=== PATIENT | male | born 1950 | race Caucasian/White ===

== ENCOUNTER 2025-04-20 16:54 | Emergency (ER) | payer OTHER, SELFPAY ==
[2025-04-20 17:01] VITALS: BP 98/73
[2025-04-20 17:22] LABS: Hematocrit 43.2 % (39.0-52.0); Hemoglobin 14.3 g/dL (13.0-18.0); Mean Corp Hgb Conc. 33.1 g/dL (33.0-37.0); Mean Corpuscular Volume 90.6 fL (80.0-94.0); Nucleated Red Blood Cells % 0 % (-); Platelet Count 141 10^3/uL (130-400); Red Cell Dist. Width 12.0 % (11.5-14.5)
[2025-04-20 17:36] LABS: ALT (SGPT) 21 U/L (0-50); AST (SGOT) 20 U/L (17-59); Albumin 4.4 g/dl (3.5-5.0); Alkaline Phosphatase 68 U/L (38-126); Blood Urea Nitrogen 22 mg/dl (9-20); Calcium 9.6 mg/dl (8.4-10.2); Carbon Dioxide 24 mmol/L (22-30); Chloride 103 mmol/L (98-107); Glucose 155 mg/dl (70-99); Lipase 80 U/L (23-300); Potassium 4.1 mmol/L (3.5-5.1); Sodium 136 mmol/L (135-145); Total Protein 6.7 g/dl (6.3-8.2); eGFR 56.58
--- NOTE | 2025-04-20 18:23 | ED.GENMED ---
History of Present Illness
<FLACO Holt - Last Filed: 04/20/25 23:00>
General
Chief Complaint: Abdominal Symptoms
Source: patient and spouse
Exam Limitations: none
Time Seen by Provider: 04/20/25 18:06
Nursing documentation reviewed up to this point in time: agreed with
History of Present Illness
History of Present Illness:
Patient is a 75-year-old male presents to the ER for abdominal pain/ Diarrhea. He initially started with diarrhea in January and had diarrhea until March 28. He was seen by his family doctor and had negative stool studies at this time. He
also had an ultrasound of his abdomen which showed cholelithiasis but no cholecystitis. He saw his GI doctor March 08 and is scheduled for an MRI of his abdomen at [place] May 21 and the colonoscopy/endoscopy May 27. He presents to
the ER today however because though his initial diarrhea stopped March 28 it restarted Monday several nights ago. He is nauseous. He did vomit today. He has lost a lot of weight since the diarrhea started January. He was 175 pounds and now he
reports he is down to 158 pounds. He has no appetite.
Past History
<FLACO Holt - Last Filed: 04/20/25 23:00>
Past History
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
ED Past Surgical History: None
Social History
Personal:
Living: with family
Employment: Employed
Phy Exam
<FLACO Holt - Last Filed: 04/20/25 23:00>
General Physical Exam
General Presentation: no apparent distress
General age: appears stated age
General Skin: warm and dry
General Habitus: elderly
General Mental: alert
General Hydration: dry mucous membranes
Cardiovascular Exam
Cardiovascular Exam: regular rate/rhythm, no murmur and normal peripheral pulses
Pulmonary Exam
Pulmonary Exam: lungs clear and no respiratory distress
Gastrointestinal Exam
Gastrointestinal Exam: non tender, soft and other (mild abd distention )
Neurological Exam
Neurological Exam: alert and oriented x3
Musculoskeletal Exam
Musculoskeletal Exam: full ROM
Skin Exam
Skin Exam: normal color and warm/dry
Psychiatric Exam
Psychiatric Exam: normal mood/affect
Course
<FLACO Holt - Last Filed: 04/20/25 23:00>
Orders/Labs/Results
Orders:
Orders
04/20/25 17:09
Complete Blood Count/With Diff Urgent
Comprehensive Metabolic Panel Urgent
Lipase Urgent
04/20/25 19:03
CT Abd/pel W Iv And Oral Contr Urgent
Comment:
Reason For Exam: nss
0.9% Sodium Chloride 1000 ml [Nss] 1,000 ml IV BOLUS
Iohexol [Omnipaque] See Protocol PO NOW STA
04/20/25 19:25
Ondansetron Injectable [Zofran] 4 mg IV NOW STA
Abnormal Lab Results
04/20/25
17:09
WBC 13.9 H 10^3/uL
(4.8-10.8)
Abs Immat Gran (auto) 0.1 H 10^3/uL
(0-0.05)
Absolute Neuts (auto) 10.8 H 10^3/uL
(1.4-6.5)
Absolute Monos (auto) 0.9 H 10^3/uL
(0.1-0.6)
Neutrophils % 77.3 H %
(42.2-75.2)
Lymphocytes % 14.8 L %
(20.5-51.1)
BUN 22 H mg/dl
(9-20)
Glucose 155 H mg/dl
(70-99)
04/20/25 17:09
04/20/25 17:09
Vital Signs
Initial and Last Documented VS:
Initial Vital Signs
Temp Pulse Resp BP Pulse Ox
98.6 F 113 18 98/73 98
04/20/25 17:01 04/20/25 17:01 04/20/25 17:01 04/20/25 17:01 04/20/25 17:01
Last Documented Vital Signs
Temp Pulse Resp BP Pulse Ox
98.6 F 113 18 116/74 97
04/20/25 17:01 04/20/25 17:01 04/20/25 17:01 04/20/25 21:00 04/20/25 21:01
<Riley Martins, DO - Last Filed: 04/20/25 22:49>
Orders/Labs/Results
Orders:
Orders
04/20/25 17:09
Complete Blood Count/With Diff Urgent
Comprehensive Metabolic Panel Urgent
Lipase Urgent
04/20/25 19:03
CT Abd/pel W Iv And Oral Contr Urgent
Comment:
Reason For Exam: nss
0.9% Sodium Chloride 1000 ml [Nss] 1,000 ml IV BOLUS
Iohexol [Omnipaque] See Protocol PO NOW STA
04/20/25 19:25
Ondansetron Injectable [Zofran] 4 mg IV NOW STA
Abnormal Lab Results
04/20/25
17:09
WBC 13.9 H 10^3/uL
(4.8-10.8)
Abs Immat Gran (auto) 0.1 H 10^3/uL
(0-0.05)
Absolute Neuts (auto) 10.8 H 10^3/uL
(1.4-6.5)
Absolute Monos (auto) 0.9 H 10^3/uL
(0.1-0.6)
Neutrophils % 77.3 H %
(42.2-75.2)
Lymphocytes % 14.8 L %
(20.5-51.1)
BUN 22 H mg/dl
(9-20)
Glucose 155 H mg/dl
(70-99)
04/20/25 17:09
04/20/25 17:09
Vital Signs
Initial and Last Documented VS:
Initial Vital Signs
Temp Pulse Resp BP Pulse Ox
98.6 F 113 18 98/73 98
04/20/25 17:01 04/20/25 17:01 04/20/25 17:01 04/20/25 17:01 04/20/25 17:01
Last Documented Vital Signs
Temp Pulse Resp BP Pulse Ox
98.6 F 113 18 116/74 97
04/20/25 17:01 04/20/25 17:01 04/20/25 17:01 04/20/25 21:00 04/20/25 21:01
<FLACO Holt - Last Filed: 04/20/25 23:00>
MDM/Problems Addressed
Differential Diagnosis Includes:
Not limited to colitis bowel obstruction dehydration
MDM/Problems Addressed:
As documented patient is a 75-year-old male who has had recent issues with diarrhea which did resolve however then restarted several nights ago. Today patient is nauseous and did vomit. He is scheduled for endoscopy colonoscopy but that is not
scheduled until May. With the start diarrhea patient has lost weight and has had decreased appetite. White count is elevated at 13.9 patient denies any fevers afebrile BUN very minimally elevated at 22. Patient was given fluids CAT scan
ordered
CAT scan reviewed with the position CAT scan does show severe distention of the colon most consistent with severe colonic adynamic ileus. There is mild splenomegaly with innumerable small low-attenuation lesions in the spleen ; very severe
enlargement the prostate gland.
This CAT scan will need outpatient follow-up. Patient was eval by ED physician patient is feeling well enough to go home. He has appointment with his family doctor on and he is being followed by his GI doctor. will d/c w/ zofran with close
outpt f/u by his pcp.
<FLACO Holt - Last Filed: 04/20/25 23:00>
*Pulse Oximetry
SaO2: 98
Oxygen Mode of Delivery: Room air
Patient hypoxic: no
*Critical Care Note
Total Time (30-74mins, 75-104mins- exclusive of procedures): Not Applicable
ED Attending Note
<FLACO Holt - Last Filed: 04/20/25 23:00>
-
Portions of this chart may have been created with voice recognition software.� Occasional wrong word or��sound alike� substitutions may have occurred due to the inherent limitations of voice recognition software.
<Riley Martins DO - Last Filed: 04/20/25 22:49>
ED Attending Note
Patient seen and examined by attending physician: Yes
I performed the substantive portion of visit, reviewed & personally made and approve the management plan that is documented in note by myself or RONDA.: Yes
ED Attending Note:
I have seen and evaluated the patient with a [id number] encounter. I have spoken to the advance practicer provider and involved in the medical history, the physical exam, medical decision making.
Evaluation and management service: agree unless noted differently below.
Results interpretation: agree unless noted differently below.
Focused HPI: 75-year-old male presenting for evaluation of intermittent abdominal pain. Patient states he gets an episode like this every year but this is lasting longer. It is associated with a lot of gas production and diarrhea
Physical exam: Sitting in bed comfortably. Soft and nontender
Medical Decision Making: CT shows concern for an ileus. We did offer admission but patient states he feels comfortable going home. He has GI follow-up. We discussed the importance of colonoscopy and endoscopy and likely obtaining tissue samples.
He has PCP appointment in 2 days. He feels better after take Zofran.
Discharge Plan
Departure
Patient Disposition: Home (Routine Discharge)
Date of Disposition: 04/20/25
Time of Disposition: 22:49
Patient with high blood pressure during this ER visit?: No
Condition: Fair
Covid-19: Not Applicable
Discharge Problem:
Adynamic ileus
Instructions: Diarrhea in teens and adults
Prescriptions:
New
ondansetron 4 mg tablet,disintegrating
4 mg PO Q8H PRN (Reason: nausea and vomiting) Qty: 10 0RF
No Action
lisinopril-hydrochlorothiazide 1 EACH tablet
1 tab PO DAILY
simvastatin 10 MG tablet
10 mg PO HS
amlodipine 5 MG tablet
5 mg PO DAILY
potassium chloride [Klor-Con] 20 MEQ packet
20 meq PO BID
esomeprazole magnesium [Nexium] 40 MG capsule,delayed release(DR/EC)
40 mg PO HS
Referrals:
Jono Manuel MD [Family Provider, Internal Medicine]
Activity Restrictions/Additional Instructions:
As discussed your CAT scan did show an adynamic ileus along with other additional findings. Please follow-up with your family doctor and your GI specialist for reevaluation of these findings return if any worsening of symptoms. You may take
nausea medicine as needed
Interventions
Interventions:
*Risk Screen - Suicide Last Done: 04/20/25 17:01
*General Assessment Last Done: 04/20/25 17:01
*ED- Fall Risk Assessment Last Done: 04/20/25 17:01
*ED COVID-19 Vaccine History Last Done: 04/20/25 17:01
*ED Influenza Vaccine History Last Done: 04/20/25 17:01
ZJ-Newmjs-Siqzptxkuw Assessment Last Done: 04/20/25 19:01
Discharge Date and Time
Print Language: UPPER SORBIAN
[2025-04-20 19:00] VITALS: BMI 21.8
[2025-04-20 19:02] VITALS: BP 93/57
[2025-04-20] MEDS: OMNIPAQUE 50 ML PO (19:09)
[2025-04-20] MEDS: NSS 1000 IV (19:10)
[2025-04-20] MEDS: ZOFRAN 4 MG IV (19:27)
[2025-04-20 20:00] VITALS: BP 111/71
[2025-04-20 21:00] VITALS: BP 116/74
[2025-04-20 23:05] VITALS: BP 107/68
== END 2025-04-20 23:05 | disposition home or self-care (01) ==
LOC: EMR 16:54
PROVIDERS: EMERGENCY PHYSICIAN Student in an Organized Health Care Education/Training Program; FAMILY PHYSICIAN Internal Medicine
DX: K56.0 Paralytic ileus (principal); R16.1 Splenomegaly, not elsewhere classified; N40.0 Benign prostatic hyperplasia without lower urinary tract symptoms
CPT/HCPCS: 96374; 96361; 99284; 74177; 80053; 83690; 85025; Q9967

== ENCOUNTER 2025-04-22 22:00 | Inpatient (IN) | payer OTHER, SELFPAY ==
[2025-04-22 15:39] VITALS: BP 89/65
[2025-04-22 16:02] LABS: Hematocrit 39.6 % (39.0-52.0); Hemoglobin 13.7 g/dL (13.0-18.0); Mean Corp Hgb Conc. 34.6 g/dL (33.0-37.0); Mean Corpuscular Volume 87.4 fL (80.0-94.0); Nucleated Red Blood Cells % 0 % (-); Platelet Count 148 10^3/uL (130-400); Red Cell Dist. Width 12.2 % (11.5-14.5)
[2025-04-22 16:12] LABS: ALT (SGPT) 20 U/L (0-50); AST (SGOT) 22 U/L (17-59); Albumin 4.3 g/dl (3.5-5.0); Alkaline Phosphatase 58 U/L (38-126); Blood Urea Nitrogen 23 mg/dl (9-20); Calcium 9.9 mg/dl (8.4-10.2); Carbon Dioxide 23 mmol/L (22-30); Chloride 104 mmol/L (98-107); Glucose 126 mg/dl (70-99); Lipase 134 U/L (23-300); Potassium 3.3 mmol/L (3.5-5.1); Sodium 134 mmol/L (135-145); Total Protein 6.8 g/dl (6.3-8.2); eGFR 56.58
--- NOTE | 2025-04-22 16:47 | ED.GENMED ---
History of Present Illness
<Sydnee Carrasco BOTTOM LOADER - Last Filed: 04/22/25 20:30>
General
Chief Complaint: Abdominal Pain
Source: patient
Exam Limitations: none
Time Seen by Provider: 04/22/25 16:47
Nursing documentation reviewed up to this point in time: agreed with
History of Present Illness
History of Present Illness:
75-year-old male with history of HTN, HLD, GERD, BPH presents for abdominal pain. He was seen here 2 days ago for abdominal pain, diarrhea since January to March 28 with negative stool studies by PCP then returned again 2 days ago prompting his ER
visit that day. During previous workup, abdomen ultrasound showed cholelithiasis but no cholecystitis. GI doctor 03/08 scheduled for MRI of his abdomen at [place] on 05/21 colonoscopy/endoscopy on 05/27. He reported a weight loss from 175 pounds to
188 pounds in [address] on 04/20 showed distention of the colon most consistent with severe colonic adynamic ileus and patient was having a prescheduled follow-up appointment with his PCP today
He is here today
Past History
<Sydnee Carrasco, BOTTOM LOADER - Last Filed: 04/22/25 20:30>
Past History
ED Past Medical History: GERD, HTN, Hypercholesterolemia, Other (Severe BPH) and Other
ED Past Surgical History: None
Social History
Personal:
Living: with family
Employment: Employed
Review of Systems
<Sydnee Carrasco, BOTTOM LOADER - Last Filed: 04/22/25 20:30>
Review of Systems
Allergies reviewed?: Yes
All Other Systems: ROS reviewed and negative except as documented in HPI and ROS
Phy Exam
<Sydnee Carrasco, BOTTOM LOADER - Last Filed: 04/22/25 20:30>
Physical Exam
Physical Exam:
GENERAL: No acute distress. A&Ox3.
CONSTITUTIONAL: Afebrile.
EYES: clear, conjunctivae normal
ENMT: moist mucus membranes, Pharynx nl
RESPIRATORY: Regular respirations, nonlabored, lungs clear.
CARDIOVASCULAR: Regular rate and rhythm, no murmurs, no rubs.
GI: Soft, nontender, normal BS
MUSCULOSKELETAL: Moves with ease. Well perfused.
SKIN: Warm, dry, pink
PSYCH: Normal mood and affect. Well kept, interactive and appropriate
NEUROLOGIC: Awake, alert and oriented. No focal neurological deficits
Course
<Sydnee Carrasco, BOTTOM LOADER - Last Filed: 04/22/25 20:30>
Orders/Labs/Results
Orders:
Orders
04/22/25 15:46
Complete Blood Count/With Diff Urgent
Comprehensive Metabolic Panel Urgent
Lipase Urgent
04/22/25 17:09
0.9% Sodium Chloride 1000 ml [Nss] 1,000 ml IV BOLUS
Potassium Chloride [KCl] 40 meq PO NOW STA
04/22/25 17:13
Obstruct Series W/PA Chest [CR Obstruct Series W/pa Chest] Urgent
Comment:
Reason For Exam: recent dx adynamic ileus, cking amt of dilatation
Abnormal Lab Results
04/22/25
15:46
WBC 11.3 H 10^3/uL
(4.8-10.8)
RBC 4.53 L 10^6/uL
(4.70-6.10)
Absolute Neuts (auto) 8.1 H 10^3/uL
(1.4-6.5)
Absolute Monos (auto) 0.9 H 10^3/uL
(0.1-0.6)
Lymphocytes % 18.3 L %
(20.5-51.1)
Sodium 134 L mmol/L
(135-145)
Potassium 3.3 L mmol/L
(3.5-5.1)
BUN 23 H mg/dl
(9-20)
Glucose 126 H mg/dl
(70-99)
04/22/25 15:46
04/22/25 15:46
Vital Signs
Initial and Last Documented VS:
Initial Vital Signs
Temp Pulse Resp BP Pulse Ox
98.2 F 96 18 89/65 96
04/22/25 15:39 04/22/25 15:39 04/22/25 15:39 04/22/25 15:39 04/22/25 15:39
Last Documented Vital Signs
Temp Pulse Resp BP Pulse Ox
97.7 F 65 16 114/73 99
04/22/25 18:27 04/22/25 18:27 04/22/25 18:27 04/22/25 18:27 04/22/25 18:27
Bench Boring Machine Operator consulted with Physician
Bench Boring Machine Operator consulted with physician?: Yes
Name of Physician Consulted: Maritza
<Sridhar Salas, DO - Last Filed: 04/22/25 20:06>
Orders/Labs/Results
Orders:
Orders
04/22/25 15:46
Complete Blood Count/With Diff Urgent
Comprehensive Metabolic Panel Urgent
Lipase Urgent
04/22/25 17:09
0.9% Sodium Chloride 1000 ml [Nss] 1,000 ml IV BOLUS
Potassium Chloride [KCl] 40 meq PO NOW STA
04/22/25 17:13
Obstruct Series W/PA Chest [CR Obstruct Series W/pa Chest] Urgent
Comment:
Reason For Exam: recent dx adynamic ileus, cking amt of dilatation
Abnormal Lab Results
04/22/25
15:46
WBC 11.3 H 10^3/uL
(4.8-10.8)
RBC 4.53 L 10^6/uL
(4.70-6.10)
Absolute Neuts (auto) 8.1 H 10^3/uL
(1.4-6.5)
Absolute Monos (auto) 0.9 H 10^3/uL
(0.1-0.6)
Lymphocytes % 18.3 L %
(20.5-51.1)
Sodium 134 L mmol/L
(135-145)
Potassium 3.3 L mmol/L
(3.5-5.1)
BUN 23 H mg/dl
(9-20)
Glucose 126 H mg/dl
(70-99)
04/22/25 15:46
04/22/25 15:46
Vital Signs
Initial and Last Documented VS:
Initial Vital Signs
Temp Pulse Resp BP Pulse Ox
98.2 F 96 18 89/65 96
04/22/25 15:39 04/22/25 15:39 04/22/25 15:39 04/22/25 15:39 04/22/25 15:39
Last Documented Vital Signs
Temp Pulse Resp BP Pulse Ox
97.7 F 65 16 114/73 99
04/22/25 18:27 04/22/25 18:27 04/22/25 18:27 04/22/25 18:27 04/22/25 18:27
<Sydnee Carrasco BOTTOM LOADER - Last Filed: 04/22/25 20:30>
MDM/Problems Addressed
Differential Diagnosis Includes:
bowel ileus, obstruction, perforation
MDM/Problems Addressed:
You [id number] male with history of HTN, HLD, GERD, BPH presents for abdominal pain. He was seen here 2 days ago for abdominal pain, diarrhea since January to March 28 with negative stool studies by PCP then returned again 2 days ago prompting
his ER visit that day. During previous workup, abdomen ultrasound showed cholelithiasis but no cholecystitis. GI doctor 03/08 scheduled for MRI of his abdomen at [place] on 05/21 colonoscopy/endoscopy on 05/27. He reported a weight loss from 175
pounds to 188 pounds in [address] on 04/20 showed distention of the colon most consistent with severe colonic adynamic ileus and patient was having a prescheduled follow-up appointment with his PCP today
He is here today
CBC: WBC 11.3 down from 2 days ago at 13.9.
CMP: No clinically significant abnormality
Spoke with patient's PCP Dr. Manuel Who states he spoke with patient's GI doctor Dr. Pabon and they want an obstruction series to compare the amount of bowel dilatation today without of the CAT scan that was taken 2 days ago. Requesting admission
and evaluation by our GI doctor.
8:00 p.m.
Obstruction series radiology report read: 1. SEVERE COLONIC ADYNAMIC ILEUS with severe diffuse air distention of the colon which appears similar to 04/20/2025.
2. No radiographic evidence for small bowel obstruction or pneumoperitoneum.
Hospitalist notified of admission
Pt remains comfortable.
<Sydnee Carrasco, BOTTOM LOADER - Last Filed: 04/22/25 20:30>
*Pulse Oximetry
SaO2: 96
Patient hypoxic: no
*Critical Care Note
Total Time (30-74mins, 75-104mins- exclusive of procedures): Not Applicable
ED Attending Note
<Sydnee Carrasco BOTTOM LOADER - Last Filed: 04/22/25 20:30>
-
Portions of this chart may have been created with voice recognition software.� Occasional wrong word or��sound alike� substitutions may have occurred due to the inherent limitations of voice recognition software.
<Sridhar Salas DO - Last Filed: 04/22/25 20:06>
ED Attending Note
Patient seen and examined by attending physician: Yes
ED Attending Note:
I have reviewed and agree with history treatment plan by Roberta carrasco DNP. My exam revealed
Physical Exam
General: no apparent distress, not acutely ill
Neck: supple. no meningeal signs. normal posterior pharynx
Heart: s1/s2 regular rate and rhythm, no murmur. equal radial
pulses.
HEENT: Pupils equal round reactive to light, EOMI
Lungs: no acute respiratory distress. clear bilaterally
Abdomen: normal bowel sounds. Diffuse tenderness. no CVAT
Neuro: alert and oriented. no focal neurological deficits cranial nerves II through XII intact
Skin: no rash
Psychiatric: well kept. interactive and cooperative
Extremities: no edema. no calf tenderness. negative homans. good distal pulses
75-year-old male with severe adynamic ileus, continued pain and diarrhea. Admit for further evaluation.
Discharge Plan
Departure
Patient Disposition: Admit
Date of Disposition: 04/22/25
Time of Disposition: 20:08
Admit to: Med/Surg
Presentation/result/management discussed w/ accepting MD/DO: Hospitalist
Condition: Fair
Discharge Problem:
Adynamic ileus
Prescriptions:
No Action
lisinopril-hydrochlorothiazide 1 EACH tablet
1 tab PO DAILY
simvastatin 10 MG tablet
10 mg PO HS
amlodipine 5 MG tablet
5 mg PO DAILY
potassium chloride [Klor-Con] 20 MEQ packet
20 meq PO BID
esomeprazole magnesium [Nexium] 40 MG capsule,delayed release(DR/EC)
40 mg PO HS
ondansetron 4 mg tablet,disintegrating
4 mg PO Q8H PRN (Reason: nausea and vomiting) Qty: 10 0RF
Referrals:
Jono Manuel MD [Family Provider, Internal Medicine]
Interventions
Interventions:
*Risk Screen - Suicide Last Done: 04/22/25 15:39
*General Assessment Last Done: 04/22/25 15:39
*Neglect/Abuse Screening Last Done: 04/22/25 15:39
*ED- Fall Risk Assessment Last Done: 04/22/25 16:54
*ED COVID-19 Vaccine History Last Done: 04/22/25 15:39
*ED Influenza Vaccine History Last Done: 04/22/25 15:39
CM-Qxkvno-Jlshbruztv Assessment Last Done: 04/22/25 16:57
Discharge Date and Time
Print Language: CENTRAL AFRICAN
[2025-04-22 16:59] VITALS: BP 107/70
[2025-04-22 17:00] VITALS: BMI 22.7
[2025-04-22] MEDS: KCL 40 MEQ PO (17:20)
[2025-04-22] MEDS: NSS 1000 IV (17:28)
[2025-04-22 18:27] VITALS: BP 114/73
[2025-04-22 20:00] VITALS: BP 98/81
--- NOTE | 2025-04-22 20:41 | HPS.HSE ---
Addendum entered and electronically signed by Cesar Villa DO 04/22/25 22:21:
Patient seen and examined independently. Agree with findings and plan as set forth by FLACO Carlton.
Patient is a 75y M with PMH significant for hypertension, BPH and GERD who presents to ED complaining of abdominal distention, diarrhea and weight loss since January. Patient reports prior h/o similar symptoms- always occurring in the fall and
usually lasting about 7-10 days. This year he developed similar symptoms and they have persisted. He reports about 10 episodes of watery, non-bloody diarrhea and large amounts of flatus per day. he feels improved for about an hour after each
episode. Mild crampy abdominal pain. No N/V. No fevers / chills.
He has andres evaluated by his PCP and GI (Dr Pabon) and is scheduled for colonoscopy in May.
Recent abdominal imaging was done which showed marked colonic distention / 'ileus' and patient was advised to present to the ED.
Ass:
Diarrhea
Colonic Distention
Mild Hyponatremia
Mild Hypokalemia
Benign Hypertension
GERD
BPH
Plan:
Admit for further evaluation and treatment.
NPO for now.
IVF support and follow for improvement in lytes.
Hold diuretics / antihypertensive meds acutely.
Check stool studies.
GI evaluation for additional recommendations.
Original Note:
Family Physician
-
Family Physician: Jono Manuel
Chief Complaint
-
abnormal out patient abdominal CT
History of Present Illness
Patient is a 75-year-old male with past medical history significant for hypertension, hyperlipidemia, GERD and BPH who presented to [facility] ED for evaluation of abnormal out patient abdominal CT. Patient states he has been dealing with watery diarrhea
multiple times a day with associated decreased appetite and nausea since mid January. Symptoms have resulted in an 18 pound weight loss per patient. He has been following with his primary provider, Dr. Manuel and GI specialist Dr. Pabon @ [facility] in [place]. He has had stool studies completed that were unremarkable and is scheduled for endoscopy colonoscopy May 27, 2025. On April 20, 2025 patient had out patient abdominal CT done that showed severe, air distention of
the colon most consistent with a severe colonic adynamic ileus. Patient states that both primary and GI called instructing him to proceed to ED for evaluation and treatment. Patient denies any fever, chills, cough, shortness of breath, palpitations,
vomiting or urinary symptoms.
Medical History
Past Medical History
Past Medical History: Reports Other
Additional Past Medical History:
hypertension
hyperlipidemia
GERD
BPH
erectile dysfunction
Past Surgical History: Reports Other
Additional Past Surgical History:
tonsillectomy
Social History
Tobacco: Non-smoker
Alcohol: None
Drug: None
Personal:
Living: With Family
Employment: Employed (continuing to work PT )
Family History
Family History: Not pertinent
Allergies / Home Medications
Allergies reflects when Allergies were last updated in [facility].
Home Medications with original date entered in [facility]
Allergy/Medication List:
Allergies
Allergy/AdvReac Type Severity Reaction Status Date / Time
Penicillins Allergy Unknown Verified 04/20/25 17:05
Sulfa (Sulfonamide Allergy Unknown Verified 04/20/25 17:05
Antibiotics)
Tetanus Vaccines and Toxoid Allergy Unknown Verified 04/20/25 17:05
(Tetanus Vaccines & Toxoid)
Home Medications
esomeprazole magnesium 40 mg capsule,delayed release (Nexium) 40 mg PO HS 03/20/14
potassium chloride 20 mEq oral packet (Klor-Con) 20 meq PO DAILY 03/20/14
ondansetron 4 mg disintegrating tablet 4 mg PO Q8H PRN nausea and vomiting #10 tabs 04/20/25
Bifidobacterium longum 10 million cell capsule (Align (B.longum)) 1 cell PO DAILY 04/22/25
atorvastatin 40 mg tablet 40 mg PO HS 04/22/25
sqogjotonz-zkzpwmbgycugm-xqhwgaow 50 mg-325 mg-40 mg tablet 1 tab PO Q4H PRN migraine 04/22/25
diazepam 5 mg tablet 5 mg PO HSPRN PRN insomnia 04/22/25
finasteride 5 mg tablet 5 mg PO HS 04/22/25
flunisolide 25 mcg (0.025 %) nasal spray 1 spray intranasal DAILY 04/22/25
lisinopril 10 mg tablet 10 mg PO DAILY 04/22/25
simethicone 125 mg tablet 125 mg PO QIDPRN PRN gas pains 04/22/25
spironolactone 25 mg tablet 25 mg PO SUTUTHSA 04/22/25
spironolactone 50 mg tablet 50 mg PO MOWEFR 04/22/25
tamsulosin 0.4 mg capsule 0.4 mg PO HS 04/22/25
zolpidem 10 mg tablet 10 mg PO HSPRN PRN insomnia 04/22/25
Review of Systems
-
History Source: Patient
Constitutional: Denies Fever or Chills
EENT: Denies Sore Throat
Respiratory: Denies Cough, Hemoptysis or Trouble Breathing
Cardiac: Denies Chest Pain, Diaphoresis, Palpitations or Syncope
Abdomen/GI: Reports Abdominal Pain, Nausea, Diarrhea, Anorexia (poor appetite ) and Other (18 weight loss since mid ); Denies Vomiting, Constipated, Bloody Stools or Black Stools
: Denies Dysuria, Frequency or Urgency
Musculoskeletal: Denies Joint Pain
Skin: Denies Rash
Neurological: Denies Dizzy, Headache, Weakness or Numbness
Endocrine: Denies Polyuria or Polydipsia
Physical Exam
Vital Signs
Vital Signs
Temp Pulse Resp BP Pulse Ox
97.7 F 65 16 114/73 99
04/22/25 18:27 04/22/25 18:27 04/22/25 18:27 04/22/25 18:27 04/22/25 18:27
Physical Exam
General: Well Developed, Well Nourished, No Apparent Distress, Comfortable and Conversant
HEENT: NormoCephalic, Moist mucous membranes, PERRLA, Nose Appears Normal and Ears Appear Normal
Respiratory: Clear and Non Labored Respirations; No Wheezes, Rales or Rhonchi
Cardiac: S1/S2 and Regular Rhythm; No Murmur
GI: Soft, Non Distended, Normal Bowel Sounds and Tender (mildly tender )
Musculoskeletal: No Clubbing, No Cyanosis and No Edema
Skin: Warm and IV/Catheter Site
Neuro: Awake and AO x 3
Psych: Calm and Intact Judgment/Insight
Laboratory Results
-
04/22/25 15:46
04/22/25 15:46
Laboratory Results
Total Bilirubin 0.8 mg/dl (0.2-1.3) 04/22/25 15:46
AST 22 U/L (17-59) 04/22/25 15:46
ALT 20 U/L (0-50) 04/22/25 15:46
Alkaline Phosphatase 58 U/L (38-126) 04/22/25 15:46
Lipase 134 U/L (23-300) 04/22/25 15:46
Data Reviewed
-
Diagnostic Radiology: Report Reviewed by me (Chest/Abd: 1. SEVERE COLONIC ADYNAMIC ILEUS with severe diffuse air distention of the colon which appears similar to 04/20/2025. 2. No radiographic evidence for small bowel obstruction or
pneumoperitoneum.)
Lab Data: Labs Reviewed by me (WBC 11.3, Na 134, K 3.3, BUN 23, Creat 1.3, eGFR 56.58)
Impression/Plan
-
IMPRESSION/PLAN:
#intractable diarrhea and nausea likely 2/2 severe colonic adynamic ileus
WBC 11.3, Na 134, K 3.3, BUN 23, Creat 1.3, eGFR 56.58
Chest/Abd X-ray: 1. SEVERE COLONIC ADYNAMIC ILEUS with severe diffuse air distention of the colon which appears similar to 04/20/2025.
2. No radiographic evidence for small bowel obstruction or pneumoperitoneum.
- Admit to med/surg
- Consult GI
- NPO
- IVF NSS 80cc/hr
- stool studies
#hypertension
- hold lisinopril and spironolactone
#hyperlipidemia
- continue atorvastatin
#GERD
- continue Nexium
#BPH
- continue finasteride and tamsulosin
Code status: full code
DVT prophylaxis: lovenox sq
--- NOTE | 2025-04-22 22:30 | PTCARENOTE ---
Pt received from ED via stretcher. Pt ambulated from stretcher to bed with standby assist. Admission questions and initial assessment completed. Pt oriented to room and call junior within reach.
[2025-04-22 22:31] VITALS: BP 106/73
[2025-04-22 22:43] VITALS: BP 114/73; BMI 22.7
[2025-04-22 22:53] VITALS: BMI 22.7
[2025-04-22] MEDS: LIPITOR 40 MG PO (23:40)
[2025-04-22] MEDS: PROTONIX 40 MG PO (23:41)
[2025-04-22] MEDS: AMBIEN 5 MG PO (23:41)
[2025-04-22] MEDS: LR 1000 IV (23:49)
[2025-04-23] MEDS: PROSCAR PO (00:02)
[2025-04-23] MEDS: FLOMAX PO (00:06)
[2025-04-23 07:05] VITALS: BP 103/71
[2025-04-23 07:09] LABS: Hematocrit 35.9 % (39.0-52.0); Hemoglobin 12.5 g/dL (13.0-18.0); Mean Corp Hgb Conc. 34.8 g/dL (33.0-37.0); Mean Corpuscular Volume 87.1 fL (80.0-94.0); Platelet Count 120 10^3/uL (130-400); Red Cell Dist. Width 12.2 % (11.5-14.5)
[2025-04-23 07:30] LABS: Blood Urea Nitrogen 22 mg/dl (9-20); Calcium 9.0 mg/dl (8.4-10.2); Carbon Dioxide 22 mmol/L (22-30); Chloride 110 mmol/L (98-107); Estimated Creatinine Clearance 63 ml/min; Glucose 87 mg/dl (70-99); Potassium 3.2 mmol/L (3.5-5.1); Sodium 139 mmol/L (135-145); eGFR > 60.00
--- NOTE | 2025-04-23 07:45 | W.PN.HOSP.TC ---
Today's Communication/Plan
-
Follow GI recommendations
Assessment / Plan
Assessment / Plan
Impression:
Patient is a 75y M with PMH significant for hypertension, BPH and GERD who presents to ED complaining of abdominal distention, diarrhea and weight loss since January. Patient reports prior h/o similar symptoms- always occurring in the fall and
usually lasting about 7-10 days. This year he developed similar symptoms and they have persisted. He reports about 10 episodes of watery, non-bloody diarrhea and large amounts of flatus per day. he feels improved for about an hour after each
episode. Mild crampy abdominal pain. No N/V. No fevers / chills.
He has andres evaluated by his PCP and GI (Dr Pabon) and is scheduled for colonoscopy in May.
X-ray shows severe colonic dynamic ileus with diffuse air distention of the colon, similar to CT scan from 04/20
Recent abdominal imaging was done which showed marked colonic distention / 'ileus' and patient was advised to present to the ED
C. difficile negative
Assessment/plan:
Intractable Diarrhea and Nausea
Likely due to: Severe colonic adynamic ileus/high-fiber diet
initial Labs shows DEVANG and WBC: 11.3 which improved to 8.0.
CT abdomen/pelvis done on 04/20/2025.
1. SEVERE AIR DISTENTION of the COLON most consistent with a SEVERE COLONIC ADYNAMIC ILEUS.
2. Mild splenomegaly with innumerable small subcentimeter low-attenuation lesions in the spleen. Diagnostic possibilities are (1) benign splenic lesions (granulomas, hemangiomas, or other benign splenic tumors) or (2) less likely malignancy
(lymphoma).
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
4. Mild intrahepatic biliary dilatation.
5. Cholelithiasis.
6. VERY SEVERE ENLARGEMENT of the PROSTATE GLAND.
7. 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
Imaging (Chest/Abd X-ray) on 04/22/2025.
Severe colonic adynamic ileus with diffuse air distention of the colon, similar to prior imaging (04/20/2025)
No radiographic evidence of small bowel obstruction or pneumoperitoneum
Plan:
Admitted to Med/Surg
GI consulted
NPO for now but may start clear liquid
IV fluids: Normal Saline at 80cc/hr
Stool studies: Negative C. difficile, pending other infectious stool studies.
Acute kidney injury.
Secondary to prerenal azotemia.
Creatinine: 1.3 improved to 1.0
Continue IV fluid
Hypokalemia.
initial K: 3.3 still low at 3.2
Replace and continue to monitor
Hyponatremia.
Resolved
Na: 134 improved to 139
Hypertension
Hold lisinopril and spironolactone
Hyperlipidemia
Continue atorvastatin
GERD
Continue esomeprazole (Nexium)
BPH
Continue finasteride and tamsulosin.
CODE STATUS: Full code
DVT prophylaxis: SCDs
Diet: NPO
Family communication: Discussed with at bedside
Disposition: GI consult
Total time spent on today's encounter was 55 minutes which included time spent in counseling the patient/family regarding diagnosis and treatment plan as listed above, goals of care, and symptom management. Case was discussed with nursing staff,
specialists, and care coordinators/case management. All labs and imaging personally reviewed by me. Remainder the time spent in detailed review of previous records, lab data, imaging, and other medical provider documentation.
Anticipated Discharge: 24 - 48 hours
Subjective/Interval History
-
Date of Service: April 23, 2025
Patient seen and examined at bedside, at bedside patient denies any chest pain or shortness of breath, patient still with significant watery diarrhea.
Objective Data
-
Labs:
Laboratory Results
04/23/25
06:17
WBC 8.0
Hgb 12.5 L
Hct 35.9 L
Plt Count 120 L
Sodium 139
Potassium 3.2 L
Chloride 110 H
Carbon Dioxide 22
BUN 22 H
Creatinine 1.0
Glucose 87
Calcium 9.0
Vital Signs:
Vital Signs
Temp Pulse Resp BP Pulse Ox
98.2 F 73 18 114/73 97
04/22/25 22:43 04/22/25 22:43 04/22/25 22:43 04/22/25 22:43 04/23/25 00:54
Physical Exam
-
General: Well Developed, Well Nourished, No Apparent Distress and Comfortable
HEENT: Normocephalic, Atraumatic, Moist Mucous Membranes, No Ptosis, PERRLA and Nose Appears Normal
Respiratory: Clear to Auscultation and Non Labored Respirations
Cardiac: Regular Rhythm and S1/S2
Breast: Deferred by me
GI: Soft, Nontender, Normal Bowel Sounds and Distended
Genito-urinary: No Costovertebral Tender
Musculoskeletal: No Clubbing, No Cyanosis and No Edema
Skin: Warm
Neuro: Awake, Alert, Oriented, AO x 3 and No Motor Deficits
Psych: Calm
Data Reviewed
-
Diagnostic Radiology: Image personally visualized and interpreted and Report Reviewed by me
CT Scan: Image personally visualized and interpreted and Report Reviewed by me
Ultrasound: Image personally visualized and interpreted and Report Reviewed by me
MRI: Image personally visualized and interpreted and Report Reviewed by me
Medical Tests (Nuc Med, Echo etc): Image personally visualized and interpreted and Report Reviewed by me
Labs: Labs Reviewed by me
Old Records: Reviewed
[2025-04-23] MEDS: KCL 260 MEQ IV (10:20)
--- NOTE | 2025-04-23 13:11 | CON.GI ---
Consultation
-
Date/Time Consultation Requested: 04/22/25, 23:06
Date/Time Consultation Performed: 04/23/25, 1:11 PM
Requesting Provider: Natasha Ferguson
Performing Provider: Panchito Connor
Reason for Consultation: Adynamic Ileus
Medical History
Chief Complaint / HPI
Chief Complaint: Abdominal Pain
History of Present Illness:
Mr Zhu is a 75 y.o male with a past medical history of HTN, BPH and GERD who presented to the ED with abdominal pain and diarrhea and abnormal CT imaging concerning for any adynamic ileus. GI has been consulted for further evaluation and
management.
Patient was previously in the ED back on 04/20/25 where he presented with intermittent abdominal pain and diarrhea. Patient reported intermittent symptoms over the past fall since mid-January. He noted relief of symptoms in March however his
symptoms recurred after Hallow. He has been closely following with both his PCP and his primary GI at [facility], Dr. Pabon. However, had recurrent symptoms with looser stools and abdominal discomfort prompting him to come to he ED on 04/20. Labs at
that time were grossly unremarkable however CT Abd/pelvis revealed severe colonic adynamic ileus with severe distension in the colon. He was feeling better and was discharged from the ED where he later followed-up with his PCP. He reports previous
stool testing which was negative and is currently scheduled for an EGD/Colon later on in May given his weight loss. Reports an approximate 15-16 lb weight loss over the past 2 months. He notes his last colonoscopy was 7 years ago which showed
one benign polyp and no prior EGD in the past. Regardless, over the past few days he noted ongoing intermittent abdominal discomfort with passage of multiple, small volume looser stools approximately 5-8 per day. Denies any chronic constipation at
baseline, new medications or other narcotics. He notes chronic symptoms which seem to recur every fall where his symptoms will last 1-2 weeks, but never this long. Denies any sick contacts or other recent travel history. He denies ever similar
presentation like this in the past. However, was ultimately advised by his GI and PCP to come back to the hospital for further evaluation. Otherwise, he currently reports feeling well this afternoon and without any abdominal pain, discomfort, nausea
or vomiting. Had three looser stools this morning and two last evening. Passing flatus and denies any distension or discomfort. No nausea, vomiting or other significant upper GI symptoms. Reports feeling hungry and hoping to tolerate some food.
In the ED, patient was afebrile and HD-stable. Labs notable for Na 134, K 3.3, BUN 23 and [facility] 1.3. LFTs normal. WBC with 11.3 and Hgb 13.7. X-Ray obstruction series on 04/22 revealed severe colonic adynamic ileus with severe diffuse air distention of
the colon which appears similar to prior CT (with cecal diameter up to 11.2 cm). No evidence of SBO or pneumoperitoneum. Patient was started on IVF and admitted to medicine for further evaluation.
Past Medical History
Past Medical History: Other (HTN, HLD, BPH, GERD, ED)
Past Surgical History: Other (Tonsillectomy)
Social History
Tobacco: Non-Smoker
Alcohol: None
Drug: None
Allergies / Home Medications
Allergy/AdvReac Type Severity Reaction Status Date / Time
Penicillins Allergy Unknown Verified 04/20/25 17:05
Sulfa (Sulfonamide Allergy Unknown Verified 04/20/25 17:05
Antibiotics)
Tetanus Vaccines and Toxoid Allergy Unknown Verified 04/20/25 17:05
(Tetanus Vaccines & Toxoid)
�Medication �Instructions �Recorded
esomeprazole magnesium 40 mg 40 mg PO HS 03/20/14
capsule,delayed release (Nexium)
potassium chloride 20 mEq oral 20 meq PO DAILY 03/20/14
packet (Klor-Con)
ondansetron 4 mg disintegrating 4 mg PO Q8H PRN nausea and 04/20/25
tablet vomiting #10 tabs
Bifidobacterium longum 10 million 1 cell PO DAILY 04/22/25
cell capsule (Align (B.longum))
atorvastatin 40 mg tablet 40 mg PO HS 04/22/25
eepfdrcmac-kkkxhfvizzahn-kgclwlnp 1 tab PO Q4H PRN migraine 04/22/25
50 mg-325 mg-40 mg tablet
diazepam 5 mg tablet 5 mg PO HSPRN PRN insomnia 04/22/25
finasteride 5 mg tablet 5 mg PO HS 04/22/25
flunisolide 25 mcg (0.025 %) nasal 1 spray intranasal DAILY 04/22/25
spray
lisinopril 10 mg tablet 10 mg PO DAILY 04/22/25
simethicone 125 mg tablet 125 mg PO QIDPRN PRN gas pains 04/22/25
spironolactone 25 mg tablet 25 mg PO SUTUTHSA 04/22/25
spironolactone 50 mg tablet 50 mg PO MOWEFR 04/22/25
tamsulosin 0.4 mg capsule 0.4 mg PO HS 04/22/25
zolpidem 10 mg tablet 10 mg PO HSPRN PRN insomnia 04/22/25
Review of Systems
-
All other systems: A 12 pt ROS was Negative except as stated above in HPI
Vital Signs
Temp Pulse Resp BP Pulse Ox
98.3 F 78 16 103/71 93
04/23/25 07:05 04/23/25 07:05 04/23/25 07:05 04/23/25 07:05 04/23/25 09:00
Physical Exam
Exam
General: Well Developed, Well Nourished, No Apparent Distress and Comfortable
Respiratory: Non Labored Respirations
GI: Soft, Non Tender, Non Distended and Normal Bowel Sounds
Skin: Dry
Neuro: Nonfocal/Grossly Intact
Psych: Calm
Results
WBC 8.0 10^3/uL (4.8-10.8) 04/23/25 06:17
Hgb 12.5 g/dL (13.0-18.0) L 04/23/25 06:17
Hct 35.9 % (39.0-52.0) L 04/23/25 06:17
MCV 87.1 fL (80.0-94.0) 04/23/25 06:17
Plt Count 120 10^3/uL (130-400) L 04/23/25 06:17
Absolute Neuts (auto) 8.1 10^3/uL (1.4-6.5) H 04/22/25 15:46
Sodium 139 mmol/L (135-145) 04/23/25 06:17
Potassium 3.2 mmol/L (3.5-5.1) L 04/23/25 06:17
Chloride 110 mmol/L (98-107) H 04/23/25 06:17
Carbon Dioxide 22 mmol/L (22-30) 04/23/25 06:17
BUN 22 mg/dl (9-20) H 04/23/25 06:17
Creatinine 1.0 mg/dL (0.7-1.3) 04/23/25 06:17
Calcium 9.0 mg/dl (8.4-10.2) 04/23/25 06:17
Total Bilirubin 0.8 mg/dl (0.2-1.3) 04/22/25 15:46
AST 22 U/L (17-59) 04/22/25 15:46
ALT 20 U/L (0-50) 04/22/25 15:46
Alkaline Phosphatase 58 U/L (38-126) 04/22/25 15:46
Lipase 134 U/L (23-300) 04/22/25 15:46
Diagnostic Image Results: As above. No prior GI records for review
Assessment / Plan
-
Mr Zhu is a 75 y.o male with a past medical history of HTN, BPH and GERD who presented to the ED with abdominal pain and diarrhea and abnormal CT imaging concerning for any adynamic ileus. GI has been consulted for further evaluation and
management.
#Colonic Ileus c/f
#Lewisburg's Syndrome
#DEVANG #Hypokalemia
Impression: Patient presenting with intermittent abdominal pain and looser stools over the past week with acute on chronic symptoms where prior CT imaging revealed adynamic ileus with significant distention within the colon (cecum measuring up to
9.8 cm). Repeat X-ray obstruction series on admission appears largely unchanged with cecal diameter up to 11.2 cm. Clinically, suspect this is related to Lewisburg's syndrome as without any obvious findings to suggest mechanical obstruction and
without any SB dilatation on imaging. He denies any recent illnesses/sicknesses, new medications or narcotics or other obvious precipitating factors. Suspect his looser stools and small volume diarrhea is likely related to overflow diarrhea as
infectious stool studies and C Diff have been ruled out. Further likely related to his colonic ileus although still unclear what precipitated his presentation but suspect this is acute on chronic. He does note an approximate 15 lb unintentional
weight loss and would eventually benefit from bi-directional endoscopy (scheduled in May) but would defer any plans while inpatient especially given his colonic ileus. Fortunately, he appears to be improving and his abdominal exam is reassuring
without any distension and having ongoing bowel function. Would continue ongoing conservative measures as below pending bowel recovery.
Recommendations:
- Okay for CLD today, defer from advancing today
- Agree with IVF to maintain euvolemia and treatment of DEVANG
- Start gentle Miralax 17 gm BiD
- Give one MoM enema now to clean out any hard stool distally
- Optimize electrolytes to promote bowel function, keep K > 4.0 and Mg > 2.0
- Repeat KUB tomorrow to reassess cecal dilatation
- Defer NGT as no significant gastric distension on recent CT imaging and without further nausea/vomiting
- No plans for further pharmacotherapy (ie Neostigmine) or colonic decompression at this time
- Monitor serial abdominal exams, encourage frequent ambulation and OOB as tolerated
- Avoidance of all anticholinergics and opioids while inpatient
- Still would benefit from an eventual EGD/Colon as outpatient but would defer at this time given his significant ileus along with consideration of MRI/MRCP given incidental intrahepatic biliary ductal dilatation on prior CT imaging
- Recommend f/u with Urology as outpatient given c/f severe enlargement of prostate gland as mentioned on CT report
- Rest of ongoing care as per primary team
Discussed with primary internal medicine team. GI will continue to follow. Please call with any questions/concerns.
Data Reviewed
-
Radiology: Image Personally Visualized and interpreted and Report Reviewed by me
CT Scan: Image Personally Visualized and interpreted and Report Reviewed by me
-
-
Thank you for consultation and allowing me to participate in the patient's care. Please call the organ tuner electronic GI physician during the after hours with any questions or concerns.
[2025-04-23] MEDS: LR 1000 IV (13:42)
--- NOTE | 2025-04-23 14:03 | CM ---
CM following re: discharge planning.
Reviewed pt' chart, met with pt and pt's spouse at bedside.
Pt is a 75 year old male, admitted with primary dx of intractable diarrhea and nausea likely 2/2 severe colonic adynamic ileus.
Pt reports he lives with spouse in a rancher style house, has no children and opt described himself as independent in all areas [employer], works and runs daily.
PCP: Jono Manuel
Pharmacy: [facility] [place]
D/C plan: home with anticipated no needs. Spouse to transport at discharge.
CM will follow with discharge plan updates as needed.
[2025-04-23 15:30] VITALS: BP 117/69
[2025-04-23 16:27] VITALS: BMI 22.7
[2025-04-23 18:24] VITALS: BP 113/65
[2025-04-23] MEDS: ALDACTONE 50 MG PO (18:29)
--- NOTE | 2025-04-23 18:39 | PTCARENOTE ---
Clear liquid diet ordered per GI, patient tolerating; MOM enema administered with +relief. Patient ambulatory in room and rivera with spouse. IVF infusing, home PO meds added per MD.
[2025-04-23] MEDS: MIRALAX PO (20:48)
[2025-04-23] MEDS: MIRALAX 17 GRAMS PO (21:08)
[2025-04-23] MEDS: PROTONIX 40 MG PO (21:10)
[2025-04-23] MEDS: LIPITOR 40 MG PO (21:10)
[2025-04-23] MEDS: PROSCAR 5 MG PO (21:10)
[2025-04-23] MEDS: FLOMAX 0.4 MG PO (21:10)
[2025-04-23] MEDS: AMBIEN 10 MG PO (23:04)
[2025-04-23 23:21] VITALS: BP 125/77
[2025-04-24] MEDS: LR 1000 IV (01:13)
[2025-04-24 07:06] VITALS: BP 114/69
[2025-04-24] MEDS: VISBIOME 1 CAP PO (07:51)
[2025-04-24] MEDS: MIRALAX 17 GRAMS PO ×2 (07:51→20:28)
[2025-04-24] MEDS: ZESTRIL 10 MG PO (07:51)
[2025-04-24] MEDS: ALDACTONE 25 MG PO (07:52)
[2025-04-24 08:38] LABS: Hematocrit 33.1 % (39.0-52.0); Hemoglobin 11.8 g/dL (13.0-18.0); Mean Corp Hgb Conc. 35.6 g/dL (33.0-37.0); Mean Corpuscular Volume 88.3 fL (80.0-94.0); Platelet Count 101 10^3/uL (130-400); Red Cell Dist. Width 12.1 % (11.5-14.5)
--- NOTE | 2025-04-24 08:40 | W.PN.GI.CBS2 ---
Addendum entered and electronically signed by Natacha Harrison MD 04/24/25 12:22:
I saw and examined the patient.
The [employer] or PA's note was reviewed and I agree with the note.
Comment:
Pt feeling better, tolerated clears
abd: mildly distended
impression:
Chronic colonic pseudoobstruction: not new, happens yearsly
xray improved today (mostly in transverse colon)
hypokalemia
plan:
ok to advance diet
miralax bid
f/u with outpt GI
should consider outpt w/u for scleroderma
Original Note:
Today's Communication / Plan
-
concern for Morley's with recurrent issues, vs diarrhea with overflow issues vs electrolyte drive with recent K issues vs other
clinically improved
await X ray from this am -- appears improved from my review with Dr. Harrison
clear diet -- if X ray reading improved will advance to low residue diet
- cont Miralax 17 gm BiD s/p enema
- Optimize electrolytes to promote bowel function, keep K > 4.0 and Mg > 2.0
- hold need for pharmacotherapy (ie Neostigmine) or colonic decompression at this time
- Monitor serial abdominal exams, encourage frequent ambulation and OOB as tolerated
- Avoidance of all anticholinergics and opioids while inpatient
- also discussed pt on multiple supplement-- difficulty for side effects-- admits to taking mag which can lead to diarrhea
- OP EGD/colon with Dr. Pabon in May
-consideration of MRI/MRCP given incidental intrahepatic biliary ductal dilatation on prior CT imaging
- Recommend f/u with Urology as outpatient given c/f severe enlargement of prostate gland as mentioned on CT report
- Rest of ongoing care as per primary team
Assessment / Plan
-
Mr Zhu is a 75 y.o male with a past medical history of HTN, BPH and GERD who presented to the ED with abdominal pain and diarrhea and abnormal CT imaging concerning for any adynamic ileus. GI has been consulted for further evaluation and
management. Hx prior similar symptoms in past. Pt also admits to recent issues with diarhea and K. He is scheduled EGD/colon in May with Dr. Pabon. + wt loss
#Colonic Ileus c/f
#Morley's Syndrome
#DEVANG #Hypokalemia
-CT with mild biliary dilatation
Recommendations:
concern for Zane's with recurrent issues, vs diarrhea with overflow issues vs electrolyte drive with recent K issues vs other
clinically improved
await X ray from this am -- appears improved from my review with Dr. Harrison
clear diet -- if X ray reading improved will advance to low residue diet
- cont Miralax 17 gm BiD s/p enema
- Optimize electrolytes to promote bowel function, keep K > 4.0 and Mg > 2.0
- hold need for pharmacotherapy (ie Neostigmine) or colonic decompression at this time
- Monitor serial abdominal exams, encourage frequent ambulation and OOB as tolerated
- Avoidance of all anticholinergics and opioids while inpatient
- also discussed pt on multiple supplement-- difficulty for side effects-- admits to taking mag which can lead to diarrhea
- OP EGD/colon with Dr. Pabon in May
-consideration of MRI/MRCP given incidental intrahepatic biliary ductal dilatation on prior CT imaging
- Recommend f/u with Urology as outpatient given c/f severe enlargement of prostate gland as mentioned on CT report
- Rest of ongoing care as per primary team
Subjective
Subjective
Date of Service: April 24, 2025
Pt feeling much better after passing flatus with enema, on clear diet
Objective
Data Reviewed
Laboratory Data:
Laboratory Results
04/24/25 07:34
Laboratory Results
Total Bilirubin 0.8 mg/dl (0.2-1.3) 04/22/25 15:46
AST 22 U/L (17-59) 04/22/25 15:46
ALT 20 U/L (0-50) 04/22/25 15:46
Alkaline Phosphatase 58 U/L (38-126) 04/22/25 15:46
Lipase 134 U/L (23-300) 04/22/25 15:46
Vital Signs and I&O:
Vital Signs
Temp Pulse Resp BP Pulse Ox
98 F 72 16 114/69 96
04/24/25 07:06 04/24/25 07:52 04/24/25 07:06 04/24/25 07:52 04/24/25 07:06
I&O
04/23/25 04/24/25 04/25/25
06:59 06:59 06:59
Intake Total 1220 / 1220
Output Total 200 / 200
Balance 1020 / 1020
Physical Exam
Physical Exam
HEENT: Anicteric and Moist mucous membranes
Cardiology: Normal Sinus Rhythm
Pulmonary: Clear
GI: Soft, Distended (minimal ) and Non Tender
Extremities: No Edema
Neuro: Non Focal
[2025-04-24 09:47] LABS: Blood Urea Nitrogen 20 mg/dl (9-20); Calcium 9.0 mg/dl (8.4-10.2); Carbon Dioxide 22 mmol/L (22-30); Chloride 108 mmol/L (98-107); Estimated Creatinine Clearance 70 ml/min; Glucose 82 mg/dl (70-99); Potassium 2.9 mmol/L (3.5-5.1); Sodium 135 mmol/L (135-145); eGFR > 60.00
--- NOTE | 2025-04-24 11:13 | W.PN.HOSP.TC ---
Today's Communication/Plan
-
continue IVF and continue to replace potassium.
Assessment / Plan
Assessment / Plan
Impression:
Patient is a 75y M with PMH significant for hypertension, BPH and GERD who presents to ED complaining of abdominal distention, diarrhea and weight loss since January. Patient reports prior h/o similar symptoms- always occurring in the fall and
usually lasting about 7-10 days. This year he developed similar symptoms and they have persisted. He reports about 10 episodes of watery, non-bloody diarrhea and large amounts of flatus per day. he feels improved for about an hour after each
episode. Mild crampy abdominal pain. No N/V. No fevers / chills.
He has andres evaluated by his PCP and GI (Dr Pabon) and is scheduled for colonoscopy in May.
X-ray shows severe colonic dynamic ileus with diffuse air distention of the colon, similar to CT scan from 04/20
Recent abdominal imaging was done which showed marked colonic distention / 'ileus' and patient was advised to present to the ED
C. difficile negative
Assessment/plan:
Intractable Diarrhea and Nausea
Likely due to: Severe colonic adynamic ileus/high-fiber diet
initial Labs shows DEVANG and WBC: 11.3 which improved to 8.0.
CT abdomen/pelvis done on 04/20/2025.
1. SEVERE AIR DISTENTION of the COLON most consistent with a SEVERE COLONIC ADYNAMIC ILEUS.
2. Mild splenomegaly with innumerable small subcentimeter low-attenuation lesions in the spleen. Diagnostic possibilities are (1) benign splenic lesions (granulomas, hemangiomas, or other benign splenic tumors) or (2) less likely malignancy
(lymphoma).
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
4. Mild intrahepatic biliary dilatation.
5. Cholelithiasis.
6. VERY SEVERE ENLARGEMENT of the PROSTATE GLAND.
7. 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
Imaging (Chest/Abd X-ray) on 04/22/2025.
Severe colonic adynamic ileus with diffuse air distention of the colon, similar to prior imaging (04/20/2025)
No radiographic evidence of small bowel obstruction or pneumoperitoneum
Plan:
Admitted to Med/Surg
GI consulted
clear liquid---> advance to low residual diet if okay with GI
IV fluids: Normal Saline at 80cc/hr
Stool studies: Negative C. difficile, pending other infectious stool studies.
Acute kidney injury.
Secondary to prerenal azotemia.
Creatinine: 1.3 improved to 1.0
Continue IV fluid
Hypokalemia.
continue to be low
Replace and continue to monitor
Hyponatremia.
Resolved
Hypertension
resumed lisinopril and spironolactone
Hyperlipidemia
Continue atorvastatin
GERD
Continue esomeprazole (Nexium)
BPH
Continue finasteride and tamsulosin.
CODE STATUS: Full code
DVT prophylaxis: SCDs
Diet: clear liquid diet--- will advance if ok with GI
Family communication: Discussed with at bedside
Disposition: continue IVF and continue to replace potassium.
Total time spent on today's encounter was 55 minutes which included time spent in counseling the patient/family regarding diagnosis and treatment plan as listed above, goals of care, and symptom management. Case was discussed with nursing staff,
specialists, and care coordinators/case management. All labs and imaging personally reviewed by me. Remainder the time spent in detailed review of previous records, lab data, imaging, and other medical provider documentation.
Anticipated Discharge: 24 - 48 hours
Subjective/Interval History
-
Date of Service: April 24, 2025
Patient seen and examined at bedside, at bedside, overall feeling better denies any chest pain or shortness of breath, improved abdominal pain, no nausea, no vomiting.
Objective Data
-
Labs:
Laboratory Results
04/24/25
07:34
WBC 5.9
Hgb 11.8 L
Hct 33.1 L
Plt Count 101 L
Sodium 135
Potassium 2.9 L
Chloride 108 H
Carbon Dioxide 22
BUN 20
Creatinine 0.9
Glucose 82
Calcium 9.0
Vital Signs:
Vital Signs
Temp Pulse Resp BP Pulse Ox
98 F 72 16 114/69 96
04/24/25 07:06 04/24/25 07:52 04/24/25 07:06 04/24/25 07:52 04/24/25 08:00
I&O
04/23/25 04/24/25 04/25/25
06:59 06:59 06:59
Intake Total 1220 / 1220
Output Total 200 / 200
Balance 1020 / 1020
Physical Exam
-
General: Well Developed, Well Nourished, No Apparent Distress and Comfortable
HEENT: Normocephalic, Atraumatic, Moist Mucous Membranes, No Ptosis, PERRLA and Nose Appears Normal
Respiratory: Clear to Auscultation and Non Labored Respirations
Cardiac: Regular Rhythm and S1/S2
Breast: Deferred by me
GI: Soft, Nontender, Normal Bowel Sounds and Distended
Genito-urinary: No Costovertebral Tender
Musculoskeletal: No Clubbing, No Cyanosis and No Edema
Skin: Warm
Neuro: Awake, Alert, Oriented, AO x 3 and No Motor Deficits
Psych: Calm
[2025-04-24] MEDS: KCL 270 MEQ IV (11:29)
--- NOTE | 2025-04-24 14:24 | PTCARENOTE ---
Patient tolerating PO fluids and low res diet, K 2.9 on AM labs, IV repletion ordered per MD. IVF order reached renew stop date, MD made aware, stated patient okay off IVF. +BM ambulatory to bathroom, in room and rivera, ringing appropriately.
[2025-04-24 15:00] VITALS: BP 110/75
[2025-04-24] MEDS: PROTONIX 40 MG PO (21:16)
[2025-04-24] MEDS: PROSCAR 5 MG PO (21:16)
[2025-04-24] MEDS: FLOMAX 0.4 MG PO (21:16)
[2025-04-24] MEDS: LIPITOR 40 MG PO (21:16)
[2025-04-24 23:00] VITALS: BP 117/76
[2025-04-24] MEDS: AMBIEN 5 MG PO (23:16)
[2025-04-25 06:27] LABS: Hematocrit 34.3 % (39.0-52.0); Hemoglobin 12.1 g/dL (13.0-18.0); Mean Corp Hgb Conc. 35.3 g/dL (33.0-37.0); Mean Corpuscular Volume 86.4 fL (80.0-94.0); Platelet Count 114 10^3/uL (130-400); Red Cell Dist. Width 12.2 % (11.5-14.5)
[2025-04-25 06:48] LABS: Blood Urea Nitrogen 16 mg/dl (9-20); Calcium 9.0 mg/dl (8.4-10.2); Carbon Dioxide 22 mmol/L (22-30); Chloride 111 mmol/L (98-107); Estimated Creatinine Clearance 63 ml/min; Glucose 91 mg/dl (70-99); Potassium 2.8 mmol/L (3.5-5.1); Sodium 140 mmol/L (135-145); eGFR > 60.00
[2025-04-25 07:00] VITALS: BP 109/76
[2025-04-25] MEDS: VISBIOME 1 CAP PO (07:39)
[2025-04-25] MEDS: ZESTRIL 10 MG PO (07:39)
[2025-04-25] MEDS: MIRALAX 17 GRAMS PO (07:39)
[2025-04-25] MEDS: ALDACTONE 50 MG PO (07:50)
--- NOTE | 2025-04-25 08:15 | W.PN.HOSP.TC ---
Today's Communication/Plan
-
See plan
Assessment / Plan
Assessment / Plan
Impression:
Patient is a 75y M with PMH significant for hypertension, BPH and GERD who presents to ED complaining of abdominal distention, diarrhea and weight loss since January. Patient reports prior h/o similar symptoms- always occurring in the fall and
usually lasting about 7-10 days. This year he developed similar symptoms and they have persisted. He reports about 10 episodes of watery, non-bloody diarrhea and large amounts of flatus per day. he feels improved for about an hour after each
episode. Mild crampy abdominal pain. No N/V. No fevers / chills.
He has andres evaluated by his PCP and GI (Dr Pabon) and is scheduled for colonoscopy in May.
X-ray shows severe colonic dynamic ileus with diffuse air distention of the colon, similar to CT scan from 04/20
Recent abdominal imaging was done which showed marked colonic distention / 'ileus' and patient was advised to present to the ED
C. difficile negative
Assessment/plan:
Intractable Diarrhea and Nausea
Likely due to: Severe colonic adynamic ileus/high-fiber diet
initial Labs shows DEVANG and WBC: 11.3 which improved to 8.0.
CT abdomen/pelvis done on 04/20/2025.
1. SEVERE AIR DISTENTION of the COLON most consistent with a SEVERE COLONIC ADYNAMIC ILEUS.
2. Mild splenomegaly with innumerable small subcentimeter low-attenuation lesions in the spleen. Diagnostic possibilities are (1) benign splenic lesions (granulomas, hemangiomas, or other benign splenic tumors) or (2) less likely malignancy
(lymphoma).
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
4. Mild intrahepatic biliary dilatation.
5. Cholelithiasis.
6. VERY SEVERE ENLARGEMENT of the PROSTATE GLAND.
7. 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
Imaging (Chest/Abd X-ray) on 04/22/2025.
Severe colonic adynamic ileus with diffuse air distention of the colon, similar to prior imaging (04/20/2025)
No radiographic evidence of small bowel obstruction or pneumoperitoneum
Plan:
Admitted to Med/Surg
GI consulted
Advanced to low residue diet if okay with GI
IV fluids were given
Stool studies: Negative C. difficile, pending other infectious stool studies.
Stopped Miralax given non-stop diarrhea
Large Cecum Diameter
-14 cm
-Communicated with GI, who recommended colorectal surgery consult
Acute kidney injury.
Secondary to prerenal azotemia.
Creatinine: 1.3 improved to 1.0
Continue IV fluid
Hypokalemia.
continue to be low
Additional IV replacements ordered
Replace and continue to monitor
Hyponatremia.
Resolved
Hypertension
recently, lisinopril and spironolactone were both resumed
Hyperlipidemia
Continue atorvastatin
GERD
Continue esomeprazole (Nexium)
BPH
Continue finasteride and tamsulosin.
CODE STATUS: Full code
DVT prophylaxis: SCDs. Subq Heparin.
Diet: Low Residue Diet
Family communication: Discussed with at bedside
Disposition: continue IVF and continue to replace potassium.
Total time spent on today's encounter was 52 minutes which included time spent in counseling the patient/family regarding diagnosis and treatment plan as listed above, goals of care, and symptom management. Case was discussed with nursing staff,
specialists, and care coordinators/case management. All labs and imaging personally reviewed by me. Remainder the time spent in detailed review of previous records, lab data, imaging, and other medical provider documentation.
Anticipated Discharge: > 48 hours
Subjective/Interval History
-
Date of Service: April 25, 2025
Patient was seen and examined. He reported continued diarrhea.
Objective Data
-
Labs:
Laboratory Results
04/25/25
05:28
WBC 6.6
Hgb 12.1 L
Hct 34.3 L
Plt Count 114 L
Sodium 140
Potassium 2.8 L
Chloride 111 H
Carbon Dioxide 22
BUN 16
Creatinine 1.0
Glucose 91
Calcium 9.0
Vital Signs:
Vital Signs
Temp Pulse Resp BP Pulse Ox
98.6 F 77 20 109/76 96
04/24/25 23:00 04/25/25 07:50 04/24/25 23:00 04/25/25 07:50 04/24/25 23:25
I&O
04/24/25 04/25/25 04/26/25
06:59 06:59 06:59
Intake Total 1220 / 1220 2655 / 2655
Output Total 200 / 200
Balance 1020 / 1020 2655 / 2655
[2025-04-25] MEDS: KCL 270 MEQ IV (09:18)
--- NOTE | 2025-04-25 13:09 | W.PN.GI.CBS2 ---
Today's Communication / Plan
-
colorectal surgery eval
Assessment / Plan
-
Mr Zhu is a 75 y.o male with a past medical history of HTN, BPH and GERD who presented to the ED with abdominal pain and diarrhea and abnormal CT imaging concerning for any adynamic ileus. GI has been consulted for further evaluation and
management. Hx prior similar symptoms in past. Pt also admits to recent issues with diarhea and K. He is scheduled EGD/colon in May with Dr. Pabon. + wt loss
I met the pt today. He denies abdominal pain, vomiting. Tolerated 1/2 sandwich for dinner last night. Abdomen was soft and non-tender on exam. Persistent hypokalemia with K of 2.8 today. He complained of multiple watery BMs and flatus.
Discussed stopping miralax. He had just returned from abdo xray at that point. Given his benign exam and absence of symptoms, I told him his ileus has likely resolved/improving and will continue with supportive mx. He seemed unsatisfied. After I
had left the room, he called me back and told me he doesn't want to see me anymore.
Later in am, abdo xray reading was available, cecum now measuring up to 14 cm. Although his exam is benign and w/o symptoms, given its measured size, I'd recommend colorectal surgery evaluation. Will follow peripherally.
Total Time Spent with Patient (in minutes): 35
Subjective
Subjective
Date of Service: April 25, 2025
No events o/n, multiple watery BMs o/n. Denies abdo pain.
Objective
Data Reviewed
Laboratory Data:
Laboratory Results
04/25/25 05:28
04/25/25 05:28
Laboratory Results
Total Bilirubin 0.8 mg/dl (0.2-1.3) 04/22/25 15:46
AST 22 U/L (17-59) 04/22/25 15:46
ALT 20 U/L (0-50) 04/22/25 15:46
Alkaline Phosphatase 58 U/L (38-126) 04/22/25 15:46
Lipase 134 U/L (23-300) 04/22/25 15:46
Vital Signs and I&O:
Vital Signs
Temp Pulse Resp BP Pulse Ox
98 F 77 20 109/76 96
04/25/25 07:00 04/25/25 07:50 04/25/25 07:00 04/25/25 07:50 04/25/25 07:00
I&O
04/24/25 04/25/25 04/26/25
06:59 06:59 06:59
Intake Total 1220 / 1220 2655 / 2655
Output Total 200 / 200
Balance 1020 / 1020 2655 / 2655
Physical Exam
Physical Exam
HEENT: Anicteric and Moist mucous membranes
GI: Soft, Distended and Non Tender
--- NOTE | 2025-04-25 14:06 | CM ---
CM following re: discharge planning.
Reviewed pt' chart, met with pt and pt's spouse at bedside.
per chart review, colorectal surgery following.
Pt lives with spouse in a rancher style house, has no children and opt described himself as independent in all areas [employer]IC[employer], works and runs daily.
D/C plan: home with anticipated no needs. Spouse to transport at discharge.
CM will follow with discharge plan updates as needed.
[2025-04-25 15:00] VITALS: BP 104/69
[2025-04-25] MEDS: LR 1000 IV (17:14)
--- NOTE | 2025-04-25 18:04 | CON.CRS ---
Consultation
-
Date/Time Consultation Performed: 04/25/25
Performing Provider: Jasen Waller MD
Reason for Consultation: colonic ileus
Medical History
-
History of Present Illness:
Patient is a 75-year-old male with PMH of HTN, HLD, BPH, GERD, tension headache, insomnia who presents after abnormal CT scan done as an outpatient. He has been having abdominal bloating associated with diarrhea since January. This happens to him
generally in the fall every year. However, usually the bloating and discomfort only lasts for about 5 to 7 days and then resolves on its own. This time, however, it has did not resolve and has been insidious. It does have a waxing and waning time
course. He felt better at the beginning of Mar, but symptoms recurred toward the end of Mar. He saw Dr. Pabon with GI who recommended an endoscopy and colonoscopy which was scheduled for May. His last colonoscopy was 7 years ago with
[facility], there was a polyp and was recommended to repeat in 10 years. He has lost 18 pounds over the last [address] scan was ordered and done on 04/20, which showed severe adynamic colonic ileus and the patient was recommended to go to the ED
after the results were published. He arrived at the ED on 04/22. His WBC was 11. Stool cultures including C. difficile have been negative. He was admitted with bowel rest and was prescribed a bowel regiment. However, the distention has persisted
as well as the diarrhea. He will underwent a repeat x-ray which showed the cecum measuring between 13 and 14 cm. Today, he denies any nausea and feels a little bit less bloated. He denies any abdominal pain. He will develop worsening gas pain
and distention. When he has an episode of diarrhea, he will pass a bunch of flatus and feel better.
Past Medical History
Past Medical History: Other (As above)
Past Surgical History: Other (Tonsils)
Social History
Tobacco: Non-Smoker
Alcohol: None
Drug: None
Personal:
Family History
Family History: Other (Denies family history of CRC)
Allergies / Home Medications
Allergy/AdvReac Type Severity Reaction Status Date / Time
Penicillins Allergy Unknown Verified 04/20/25 17:05
Sulfa (Sulfonamide Allergy Unknown Verified 04/20/25 17:05
Antibiotics)
Tetanus Vaccines and Toxoid Allergy Unknown Verified 04/20/25 17:05
(Tetanus Vaccines & Toxoid)
�Medication �Instructions �Recorded �Confirmed �Type
esomeprazole magnesium 40 mg 40 mg PO HS 03/20/14 04/22/25 History
capsule,delayed release (Nexium)
potassium chloride 20 mEq oral 20 meq PO DAILY 03/20/14 04/22/25 History
packet (Klor-Con)
ondansetron 4 mg disintegrating 4 mg PO Q8H PRN nausea and 04/20/25 04/22/25 Rx
tablet vomiting #10 tabs
Bifidobacterium longum 10 million 1 cell PO DAILY 04/22/25 04/22/25 History
cell capsule (Align (B.longum))
atorvastatin 40 mg tablet 40 mg PO HS 04/22/25 04/22/25 History
barotorhvq-ckpjztjoffyhd-dxxrdztu 1 tab PO Q4H PRN migraine 04/22/25 04/22/25 History
50 mg-325 mg-40 mg tablet
diazepam 5 mg tablet 5 mg PO HSPRN PRN insomnia 04/22/25 04/22/25 History
finasteride 5 mg tablet 5 mg PO HS 04/22/25 04/22/25 History
flunisolide 25 mcg (0.025 %) nasal 1 spray intranasal DAILY 04/22/25 04/22/25 History
spray
lisinopril 10 mg tablet 10 mg PO DAILY 04/22/25 04/22/25 History
simethicone 125 mg tablet 125 mg PO QIDPRN PRN gas pains 04/22/25 04/22/25 History
spironolactone 25 mg tablet 25 mg PO SUTUTHSA 04/22/25 04/22/25 History
spironolactone 50 mg tablet 50 mg PO MOWEFR 04/22/25 04/22/25 History
tamsulosin 0.4 mg capsule 0.4 mg PO HS 04/22/25 04/22/25 History
zolpidem 10 mg tablet 10 mg PO HSPRN PRN insomnia 04/22/25 04/22/25 History
Review of Systems
-
A 10 point review of systems was completed, and was negative except as per HPI.
Physical Exam
Vital Signs
Temp 98 F 04/25/25 15:00
Pulse 77 04/25/25 15:00
Resp Rate 18 04/25/25 15:00
Blood pressure 104/69 04/25/25 15:00
SaO2 97 04/25/25 15:00
Body Mass Index (BMI) 22.7
Lab Results / Allergies
04/25/25 05:28
WBC 6.6 10^3/uL (4.8-10.8) 04/25/25 05:28
Hgb 12.1 g/dL (13.0-18.0) L 04/25/25 05:28
Hct 34.3 % (39.0-52.0) L 04/25/25 05:28
Plt Count 114 10^3/uL (130-400) L 04/25/25 05:28
Abs Immat Gran (auto) 0.0 10^3/uL (0-0.05) 04/22/25 15:46
Neutrophils % 71.1 % (42.2-75.2) 04/22/25 15:46
Allergy/AdvReac Type Severity Reaction Status Date / Time
Penicillins Allergy Unknown Verified 04/20/25 17:05
Sulfa (Sulfonamide Allergy Unknown Verified 04/20/25 17:05
Antibiotics)
Tetanus Vaccines and Toxoid Allergy Unknown Verified 04/20/25 17:05
(Tetanus Vaccines & Toxoid)
Physical Exam
General: Well Developed, Well Nourished and No Apparent Distress
HEENT: Normocephalic and Atraumatic
Respiratory: Non Labored Respirations
Cardiac: S1/S2
GI: Soft, Non Tender (No rebound or guarding) and Distended (Moderately distended with tympany diffusely)
Rectal: Other (Mild superficial perianal irritation with posterior abrasions; no external masses or hemorrhoids; on EKATERINA, no palpable masses, enlarged prostate, elevated sphincter tone)
Skin: Warm and Dry
Neuro: AO x 3
Data Reviewed
-
CT Scan: Image Personally Visualized and interpreted, Discussed with Physician (GI and hospitalist) and Discussed with Patient
Assessment / Plan
-
75-year-old male with PMH of HTN, HLD, BPH, GERD, tension headache, insomnia who presents after abnormal CT scan done as an outpatient for intermittent and persistent abdominal bloating, discomfort and diarrhea since January. This has happened to
him in the past almost annually, but self resolves after 5 to 7 days. He has lost over 18 pounds since it started. On 04/20, he underwent a CT scan which showed severe adynamic colonic ileus without a concern for distal obstruction. Oral contrast
was seen in the terminal ileum. He was instructed to go to the ED on 04/22. His WBC was 11. He was admitted with bowel rest and was prescribed a bowel regiment. However, the distention has persisted as well as the diarrhea. AXR today shows cecum
up to 13-14 cm. Has passed flatus today and currently denies nausea or abdominal pain
�Colonic ileus, concerning for [place]'s; other possibilities include infectious versus inflammatory colitis, obstructive defecation syndrome, less likely distal obstruction due to mass versus stricture
�Recommend aggressive repletion of potassium, this may be contributing to the ileus; other electrolytes look okay; minimize/avoid narcotics and anticholinergics
-No acute surgical intervention currently indicated; however, cecum measuring greater than 12 cm; therefore, I would recommend proceeding with either decompressive sigmoidoscopy versus neostigmine; if neostigmine is elected, would consider
Gastrografin enema first to rule out distal obstruction (however based on CT scan and EKATERINA, distal obstruction seems less likely)
�Discussed with GI and hospitalist; earlier, patient indicated that he would no longer like Dr. Castro with GI involved in his care; I explained to the patient that this is a medical condition that can be treated medically, perhaps with a flexible
sigmoidoscope, all of which will need GI involvement; if he does not want Dr. Castro involved in his care, I would recommend transfer to another hospital; after explaining this, the patient was amenable to continuing his care here with Dr. Castro from GI
�Would keep at clears, make n.p.o. at midnight for possible procedure
� Okay for DVT PPx from surgical standpoint
� Appreciate hospitalist
[2025-04-25] MEDS: HEPARIN 5000 UNITS SC (20:07)
[2025-04-25 20:18] LABS: Blood Urea Nitrogen 16 mg/dl (9-20); Calcium 9.5 mg/dl (8.4-10.2); Carbon Dioxide 22 mmol/L (22-30); Chloride 109 mmol/L (98-107); Estimated Creatinine Clearance 70 ml/min; Glucose 119 mg/dl (70-99); Potassium 3.1 mmol/L (3.5-5.1); Sodium 135 mmol/L (135-145); eGFR > 60.00
[2025-04-25] MEDS: PROTONIX 40 MG PO (21:57)
[2025-04-25] MEDS: PROSCAR 5 MG PO (21:57)
[2025-04-25] MEDS: FLOMAX 0.4 MG PO (21:57)
[2025-04-25] MEDS: AMBIEN 5 MG PO (21:57)
[2025-04-25] MEDS: LIPITOR 40 MG PO (21:57)
[2025-04-25 23:11] VITALS: BP 117/73
[2025-04-26] MEDS: LR 1000 IV ×2 (05:54→20:20)
[2025-04-26 07:00] VITALS: BP 113/73
--- NOTE | 2025-04-26 07:21 | W.PN.HOSP.TC ---
Today's Communication/Plan
-
See plan
Assessment / Plan
Assessment / Plan
Impression:
Patient is a 75y M with PMH significant for hypertension, BPH and GERD who presents to ED complaining of abdominal distention, diarrhea and weight loss since January. Patient reports prior h/o similar symptoms- always occurring in the fall and
usually lasting about 7-10 days. This year he developed similar symptoms and they have persisted. He reports about 10 episodes of watery, non-bloody diarrhea and large amounts of flatus per day. he feels improved for about an hour after each
episode. Mild crampy abdominal pain. No N/V. No fevers / chills.
He has andres evaluated by his PCP and GI (Dr Pabon) and is scheduled for colonoscopy in May.
X-ray shows severe colonic dynamic ileus with diffuse air distention of the colon, similar to CT scan from 04/20
Recent abdominal imaging was done which showed marked colonic distention / 'ileus' and patient was advised to present to the ED
C. difficile negative
Assessment/plan:
Intractable Diarrhea and Nausea
Likely due to: Severe colonic adynamic ileus/high-fiber diet
initial Labs shows DEVANG and WBC: 11.3 which improved to 8.0.
CT abdomen/pelvis done on 04/20/2025.
1. SEVERE AIR DISTENTION of the COLON most consistent with a SEVERE COLONIC ADYNAMIC ILEUS.
2. Mild splenomegaly with innumerable small subcentimeter low-attenuation lesions in the spleen. Diagnostic possibilities are (1) benign splenic lesions (granulomas, hemangiomas, or other benign splenic tumors) or (2) less likely malignancy
(lymphoma).
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
4. Mild intrahepatic biliary dilatation.
5. Cholelithiasis.
6. VERY SEVERE ENLARGEMENT of the PROSTATE GLAND.
7. 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
Imaging (Chest/Abd X-ray) on 04/22/2025.
Severe colonic adynamic ileus with diffuse air distention of the colon, similar to prior imaging (04/20/2025)
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
No radiographic evidence of small bowel obstruction or pneumoperitoneum
Plan:
Admitted to Med/Surg
GI consulted
IV fluids were given
Stool studies: Negative C. difficile, pending other infectious stool studies.
Stopped Miralax given non-stop diarrhea
Minimize/avoid narcotics and anticholinergics
Colon decompression by Dr. Castro today
Large Cecum Diameter
-14 cm
-Communicated with GI, who recommended colorectal surgery consult --> no plans for surgery at this time, recommendation for colonic decompression
Acute kidney injury.
Secondary to prerenal azotemia.
Creatinine: 1.3 improved to 1.0
Continue IV fluid
Hypokalemia.
continue to be low
this can be contributing to patient's ileus
Additional IV replacements ordered
PO scheduled potassium -- dose increased on 04/26/25
Replace and continue to monitor
Hyponatremia.
Resolved
Hypertension
recently, lisinopril and spironolactone were both resumed
Hyperlipidemia
Continue atorvastatin
GERD
Continue esomeprazole (Nexium)
BPH
Continue finasteride and tamsulosin.
CODE STATUS: Full code
DVT prophylaxis: SCDs. Patient is ambulatory/active therefore does not need subq Heparin. Fam Score is 1.
Diet: Low Residue Diet
Family communication: Discussed with at bedside
Disposition: continue IVF and continue to replace potassium.
Total time spent on today's encounter was 51 minutes which included time spent in counseling the patient/family regarding diagnosis and treatment plan as listed above, goals of care, and symptom management. Case was discussed with nursing staff,
specialists, and care coordinators/case management. All labs and imaging personally reviewed by me. Remainder the time spent in detailed review of previous records, lab data, imaging, and other medical provider documentation.
Anticipated Discharge: > 48 hours
Subjective/Interval History
-
Date of Service: April 26, 2025
Patient was seen and examined. He reported that his diarrhea is somewhat better today.
Objective Data
-
Labs:
Laboratory Results
04/25/25
19:39
Sodium 135
Potassium 3.1 L
Chloride 109 H
Carbon Dioxide 22
BUN 16
Creatinine 0.9
Glucose 119 H
Calcium 9.5
Vital Signs:
Vital Signs
Temp Pulse Resp BP Pulse Ox
98.3 F 66 16 117/73 98
04/25/25 23:11 04/25/25 23:11 04/25/25 23:11 04/25/25 23:11 04/25/25 23:11
I&O
04/25/25 04/26/25 04/27/25
06:59 06:59 06:59
Intake Total 2655 / 2655 2360 / 2360
Balance 2655 / 2655 2360 / 2360
[2025-04-26 08:14] LABS: Hematocrit 34.2 % (39.0-52.0); Hemoglobin 12.1 g/dL (13.0-18.0); Mean Corp Hgb Conc. 35.4 g/dL (33.0-37.0); Mean Corpuscular Volume 87.5 fL (80.0-94.0); Platelet Count 116 10^3/uL (130-400); Red Cell Dist. Width 12.4 % (11.5-14.5)
[2025-04-26] MEDS: ZESTRIL 10 MG PO (08:20)
[2025-04-26] MEDS: VISBIOME 1 CAP PO (08:20)
[2025-04-26] MEDS: HEPARIN 5000 UNITS SC (08:21)
[2025-04-26] MEDS: ALDACTONE 25 MG PO (08:27)
[2025-04-26 08:44] LABS: Blood Urea Nitrogen 15 mg/dl (9-20); Carbon Dioxide 25 mmol/L (22-30); Chloride 111 mmol/L (98-107); Estimated Creatinine Clearance 70 ml/min; Magnesium 1.6 mg/dl (1.6-2.3); Sodium 138 mmol/L (135-145); eGFR > 60.00
[2025-04-26 08:54] LABS: Calcium 9.2 mg/dl (8.4-10.2); Glucose 86 mg/dl (70-99); Potassium 3.0 mmol/L (3.5-5.1)
[2025-04-26] MEDS: KCL 40 MEQ PO ×2 (09:34→21:22)
--- NOTE | 2025-04-26 10:42 | W.PN.CRS1 ---
Today's Communication / Plan
-
colonic decompression by GI today
no plans for OR
Assessment/Plan
-
75-year-old male with PMH of HTN, HLD, BPH, GERD, tension headache, insomnia who presents after abnormal CT scan done as an outpatient for intermittent and persistent abdominal bloating, discomfort and diarrhea since January. This has happened to
him in the past almost annually, but self resolves after 5 to 7 days. He has lost over 18 pounds since it started. On 04/20, he underwent a CT scan which showed severe adynamic colonic ileus without a concern for distal obstruction. Oral contrast
was seen in the terminal ileum. He was instructed to go to the ED on 04/22. His WBC was 11. He was admitted with bowel rest and was prescribed a bowel regiment. However, the distention has persisted as well as the diarrhea. AXR today shows cecum
up to 13-14 cm. Has passed flatus today and currently denies nausea or abdominal pain
�Colonic ileus, concerning for Chataignier's; other possibilities include infectious versus inflammatory colitis, obstructive defecation syndrome, less likely distal obstruction due to mass versus stricture
�Recommend aggressive repletion of potassium, this may be contributing to the ileus; other electrolytes look okay; minimize/avoid narcotics and anticholinergics
-No acute surgical intervention currently indicated; however, cecum measuring greater than 12 cm- for decompressive flex sig today with Dr. Castro
-Remain NPO for procedure
� Okay for DVT PPx from surgical standpoint
� Appreciate hospitalist
Subjective Data
Subjective Data
Date of Service: April 26, 2025
Patient states he had 15 watery bowel movements today and 3 this morning. Denies blood. Denies nausea or vomiting. He does not feel bloated and denies abdominal pain.
Objective Data
-
Vital Signs
Temp Pulse Resp BP Pulse Ox
97.9 F 62 20 117/73 97
04/26/25 07:00 04/26/25 08:27 04/26/25 07:00 04/26/25 08:27 04/26/25 07:00
Intake & Output
04/25/25 04/26/25 04/27/25
06:59 06:59 06:59
Intake Total 2655 / 2655 2360 / 2360
Balance 2655 / 2655 2360 / 2360
Intake:
Oral fluids 2655 / 2655 1120 / 1120
IV fluids (Total) 970 / 970
IV piggybacks 270 / 270
Other:
Number of approximated MODERATE 4 3
amounts of urine
Number of unmeasured liquid
stools
Rectum 7 6
Lab Results
04/26/25 07:34
04/26/25 07:34
Physical Exam
-
General: No Acute Distress and AOx3
Abdomen: Soft, Distended (mild) and Non Tender
Skin: Warm and Dry
[2025-04-26] MEDS: KCL 270 MEQ IV (10:57)
[2025-04-26 12:37] VITALS: BP 119/70
[2025-04-26 15:00] VITALS: BP 112/62
[2025-04-26 20:38] LABS: Blood Urea Nitrogen 14 mg/dl (9-20); Calcium 9.2 mg/dl (8.4-10.2); Carbon Dioxide 21 mmol/L (22-30); Chloride 113 mmol/L (98-107); Estimated Creatinine Clearance 70 ml/min; Glucose 102 mg/dl (70-99); Potassium 3.5 mmol/L (3.5-5.1); Sodium 141 mmol/L (135-145); eGFR > 60.00
[2025-04-26] MEDS: PROSCAR 5 MG PO (21:22)
[2025-04-26] MEDS: PROTONIX 40 MG PO (21:23)
[2025-04-26] MEDS: FLOMAX 0.4 MG PO (21:23)
[2025-04-26] MEDS: LIPITOR 40 MG PO (21:23)
[2025-04-26 23:07] VITALS: BP 109/69
[2025-04-26] MEDS: AMBIEN 5 MG PO (23:09)
[2025-04-27 07:17] VITALS: BP 119/70
[2025-04-27 07:58] LABS: Hematocrit 35.0 % (39.0-52.0); Hemoglobin 11.9 g/dL (13.0-18.0); Mean Corp Hgb Conc. 34.0 g/dL (33.0-37.0); Mean Corpuscular Volume 90.0 fL (80.0-94.0); Platelet Count 110 10^3/uL (130-400); Red Cell Dist. Width 12.7 % (11.5-14.5)
[2025-04-27] MEDS: VISBIOME 1 CAP PO (08:11)
[2025-04-27] MEDS: KCL 40 MEQ PO (08:11)
[2025-04-27] MEDS: ZESTRIL 10 MG PO (08:11)
[2025-04-27] MEDS: ALDACTONE 25 MG PO (08:13)
[2025-04-27] MEDS: LR 1000 IV ×2 (08:17→22:28)
[2025-04-27 09:16] LABS: Blood Urea Nitrogen 12 mg/dl (9-20); Calcium 9.0 mg/dl (8.4-10.2); Carbon Dioxide 21 mmol/L (22-30); Chloride 114 mmol/L (98-107); Estimated Creatinine Clearance 78 ml/min; Glucose 90 mg/dl (70-99); Magnesium 1.6 mg/dl (1.6-2.3); Potassium 3.8 mmol/L (3.5-5.1); Sodium 139 mmol/L (135-145); eGFR > 60.00
[2025-04-27] MEDS: MAGNESIUM SULFATE 50 IV (10:00)
--- NOTE | 2025-04-27 11:50 | W.PN.HOSP.TC ---
Today's Communication/Plan
-
Discussed with GI Dr. Castro, he recommended to keep patient overnight he had about 10 bowel movements overnight
Potassium now up to normal
Assessment / Plan
Assessment / Plan
Impression:
Patient is a 75y M with PMH significant for hypertension, BPH and GERD who presents to ED complaining of abdominal distention, diarrhea and weight loss since January. Patient reports prior h/o similar symptoms- always occurring in the fall and
usually lasting about 7-10 days. This year he developed similar symptoms and they have persisted. He reports about 10 episodes of watery, non-bloody diarrhea and large amounts of flatus per day. he feels improved for about an hour after each
episode. Mild crampy abdominal pain. No N/V. No fevers / chills.
He has andres evaluated by his PCP and GI (Dr Pabon) and is scheduled for colonoscopy in May.
X-ray shows severe colonic dynamic ileus with diffuse air distention of the colon, similar to CT scan from 04/20
Recent abdominal imaging was done which showed marked colonic distention / 'ileus' and patient was advised to present to the ED
C. difficile negative
Assessment/plan:
Intractable Diarrhea and Nausea
Likely due to: Severe colonic adynamic ileus/high-fiber diet
initial Labs shows DEVANG and WBC: 11.3 which improved to 8.0.
CT abdomen/pelvis done on 04/20/2025.
1. SEVERE AIR DISTENTION of the COLON most consistent with a SEVERE COLONIC ADYNAMIC ILEUS.
2. Mild splenomegaly with innumerable small subcentimeter low-attenuation lesions in the spleen. Diagnostic possibilities are (1) benign splenic lesions (granulomas, hemangiomas, or other benign splenic tumors) or (2) less likely malignancy
(lymphoma).
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
4. Mild intrahepatic biliary dilatation.
5. Cholelithiasis.
6. VERY SEVERE ENLARGEMENT of the PROSTATE GLAND.
7. 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
Imaging (Chest/Abd X-ray) on 04/22/2025.
Severe colonic adynamic ileus with diffuse air distention of the colon, similar to prior imaging (04/20/2025)
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
No radiographic evidence of small bowel obstruction or pneumoperitoneum
Plan:
Admitted to Med/Surg
GI consulted
IV fluids were given
Stool studies: Negative C. difficile, pending other infectious stool studies.
Stopped Miralax given non-stop diarrhea
Minimize/avoid narcotics and anticholinergics
Colon decompression by Dr. Castro took place on 04/26/25 (status post flex sigmoidoscopy on 04/26, showed mild inflammatory changes in cecum/ascending colon, bx taken. Decompressed)
Follow-up biopsy results
Large Cecum Diameter
-14 cm
-Communicated with GI, who recommended colorectal surgery consult --> no plans for surgery at this time, recommendation for colonic decompression (please see above)
Acute kidney injury.
Secondary to prerenal azotemia.
Creatinine: 1.3 improved to 1.0 to 0.8
Continue IV fluid
Hypokalemia.
-Now resolved
-this can be contributing to patient's ileus
-Additional IV replacements ordered
-PO scheduled potassium -- dose increased on 04/26/25
-Replace and continue to monitor as needed
Hyponatremia.
Resolved
Hypertension
recently, lisinopril and spironolactone were both resumed
Hyperlipidemia
Continue atorvastatin
GERD
Continue esomeprazole (Nexium)
BPH
Continue finasteride and tamsulosin.
CODE STATUS: Full code
DVT prophylaxis: SCDs. Patient is ambulatory/active therefore does not need subq Heparin. Fam Score is 1.
Diet: Low Residue Diet
Family communication: Discussed with at bedside
Disposition: continue IVF and continue to replace potassium.
Total time spent on today's encounter was 51 minutes which included time spent in counseling the patient/family regarding diagnosis and treatment plan as listed above, goals of care, and symptom management. Case was discussed with nursing staff,
specialists, and care coordinators/case management. All labs and imaging personally reviewed by me. Remainder the time spent in detailed review of previous records, lab data, imaging, and other medical provider documentation.
Anticipated Discharge: Within 24 hours
Subjective/Interval History
-
Date of Service: April 27, 2025
Patient was seen and examined. He was still having significant diarrhea overnight.
Objective Data
-
Labs:
Laboratory Results
04/27/25
07:00
WBC 6.3
Hgb 11.9 L
Hct 35.0 L
Plt Count 110 L
Sodium 139
Potassium 3.8
Chloride 114 H
Carbon Dioxide 21 L
BUN 12
Creatinine 0.8
Glucose 90
Calcium 9.0
Vital Signs:
Vital Signs
Temp Pulse Resp BP Pulse Ox
98.0 F 59 16 119/70 98
04/27/25 07:17 04/27/25 08:11 04/27/25 07:17 04/27/25 08:11 04/27/25 07:17
I&O
04/26/25 04/27/25 04/28/25
06:59 06:59 06:59
Intake Total 2359
Balance 2359 / 2359
--- NOTE | 2025-04-27 14:49 | W.PN.GI.CBS2 ---
Today's Communication / Plan
-
cont w/ diet
Assessment / Plan
-
Mr Zhu is a 75 y.o male with a past medical history of HTN, BPH and GERD who presented to the ED with abdominal pain and diarrhea and abnormal CT imaging concerning for any adynamic ileus. GI has been consulted for further evaluation and
management. Hx prior similar symptoms in past. Pt also admits to recent issues with diarhea and K. He is scheduled EGD/colon in May with Dr. Pabon. + wt loss
I met the pt today. He denies abdominal pain, vomiting. Tolerated 1/2 sandwich for dinner last night. Abdomen was soft and non-tender on exam. Persistent hypokalemia with K of 2.8 today. He complained of multiple watery BMs and flatus.
Discussed stopping miralax. He had just returned from abdo xray at that point. Given his benign exam and absence of symptoms, I told him his ileus has likely resolved/improving and will continue with supportive mx. He seemed unsatisfied. After I
had left the room, he called me back and told me he doesn't want to see me anymore.
Later in am, abdo xray reading was available, cecum now measuring up to 14 cm. Although his exam is benign and w/o symptoms, given its measured size, I'd recommend colorectal surgery evaluation. Will follow peripherally.
S/p flx sigmoidoscopy on 04/26, showed mild inflammatory changes in cecum/ascending colon, bx taken. Decompressed. Tolerated solid diet o/n, but had ~10 watery BMs/flatus. Wishes to be monitored another day. Continue with regular diet, monitor
stool output. F/u as OP upon d/c, likely tomorrow.
Total Time Spent with Patient (in minutes): 35
Subjective
Subjective
Date of Service: April 27, 2025
Had ~10 watery BMs o/n.
Objective
Data Reviewed
Laboratory Data:
Laboratory Results
04/27/25 07:00
04/27/25 07:00
Laboratory Results
Magnesium 1.6 mg/dl (1.6-2.3) 04/27/25 07:00
Total Bilirubin 0.8 mg/dl (0.2-1.3) 04/22/25 15:46
AST 22 U/L (17-59) 04/22/25 15:46
ALT 20 U/L (0-50) 04/22/25 15:46
Alkaline Phosphatase 58 U/L (38-126) 04/22/25 15:46
Lipase 134 U/L (23-300) 04/22/25 15:46
Vital Signs and I&O:
Vital Signs
Temp Pulse Resp BP Pulse Ox
98.0 F 59 16 119/70 98
04/27/25 07:17 04/27/25 08:11 04/27/25 07:17 04/27/25 08:11 04/27/25 07:17
I&O
04/26/25 04/27/25 04/28/25
06:59 06:59 06:59
Intake Total 2359
Balance 2359 / 2359
[2025-04-27 15:20] VITALS: BP 109/65
[2025-04-27] MEDS: PROSCAR 5 MG PO (21:04)
[2025-04-27] MEDS: LIPITOR 40 MG PO (21:05)
[2025-04-27] MEDS: PROTONIX 40 MG PO (21:05)
[2025-04-27] MEDS: FLOMAX 0.4 MG PO (21:05)
[2025-04-27] MEDS: AMBIEN 5 MG PO (22:28)
[2025-04-27 23:00] VITALS: BP 115/67
[2025-04-28 07:00] VITALS: BP 113/68
[2025-04-28 08:43] LABS: Hematocrit 33.7 % (39.0-52.0); Hemoglobin 11.4 g/dL (13.0-18.0); Mean Corp Hgb Conc. 33.8 g/dL (33.0-37.0); Mean Corpuscular Volume 92.1 fL (80.0-94.0); Platelet Count 109 10^3/uL (130-400); Red Cell Dist. Width 13.0 % (11.5-14.5)
[2025-04-28 09:03] LABS: Blood Urea Nitrogen 12 mg/dl (9-20); Calcium 8.7 mg/dl (8.4-10.2); Carbon Dioxide 23 mmol/L (22-30); Chloride 115 mmol/L (98-107); Estimated Creatinine Clearance 70 ml/min; Glucose 91 mg/dl (70-99); Magnesium 1.8 mg/dl (1.6-2.3); Sodium 143 mmol/L (135-145); eGFR > 60.00
[2025-04-28] MEDS: KCL 40 MEQ PO ×2 (09:07→17:17)
[2025-04-28] MEDS: VISBIOME 1 CAP PO (09:08)
[2025-04-28] MEDS: ZESTRIL 10 MG PO (09:08)
[2025-04-28 09:10] LABS: Potassium 3.4 mmol/L (3.5-5.1)
[2025-04-28] MEDS: ALDACTONE 50 MG PO (09:13)
--- NOTE | 2025-04-28 09:50 | W.PN.HOSP.TC ---
Today's Communication/Plan
-
Reassurance
Discharge tomorrow
Assessment / Plan
Assessment / Plan
HPI: 75y M with PMH significant for hypertension, BPH and GERD who presents to ED complaining of abdominal distention, diarrhea and weight loss since January. Patient reports prior h/o similar symptoms- always occurring in the fall and usually
lasting about 7-10 days. This year he developed similar symptoms and they have persisted. He reports about 10 episodes of watery, non-bloody diarrhea and large amounts of flatus per day. he feels improved for about an hour after each episode.
Mild crampy abdominal pain. No N/V. No fevers / chills.
He has andres evaluated by his PCP and GI (Dr Pabon) and is scheduled for colonoscopy in May. X-ray shows severe colonic dynamic ileus with diffuse air distention of the colon, similar to CT scan from 04/20
Recent abdominal imaging was done which showed marked colonic distention / 'ileus' and patient was advised to present to the ED
C. difficile negative
CT abdomen/pelvis done on 04/20/2025.
1. SEVERE AIR DISTENTION of the COLON most consistent with a SEVERE COLONIC ADYNAMIC ILEUS.
2. Mild splenomegaly with innumerable small subcentimeter low-attenuation lesions in the spleen. Diagnostic possibilities are (1) benign splenic lesions (granulomas, hemangiomas, or other benign splenic tumors) or (2) less likely malignancy
(lymphoma).
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
4. Mild intrahepatic biliary dilatation.
5. Cholelithiasis.
6. VERY SEVERE ENLARGEMENT of the PROSTATE GLAND.
7. 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
Imaging (Chest/Abd X-ray) on 04/22/2025.
Severe colonic adynamic ileus with diffuse air distention of the colon, similar to prior imaging (04/20/2025)
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
No radiographic evidence of small bowel obstruction or pneumoperitoneum
Stool studies: Negative C. difficile, pending other infectious stool studies.
Severe colonic adynamic ileus
Large Cecum Diameter
- 14 cm
- Status post colonic decompression by Dr. Castro on 04/26/25 (status post flex sigmoidoscopy on 04/26, showed mild inflammatory changes in cecum/ascending colon, bx taken. Decompressed)
- Tolerating diet
Acute kidney injury.
Secondary to prerenal azotemia.
Creatinine: 1.3 improved to 1.0 to 0.8
Resolved with IV fluids
Hypokalemia
Continue aggressive repletion, magnesium normal
Hyponatremia.
Resolved
Hypertension
recently, lisinopril and spironolactone were both resumed
Hyperlipidemia
Continue atorvastatin
GERD
Continue esomeprazole (Nexium)
BPH
Continue finasteride and tamsulosin.
DVT prophylaxis: SCDs. Patient is ambulatory/active therefore does not need subq Heparin. Fam Score is 1.
Diet: Low Residue Diet
Family communication: Discussed with at bedside
Total time spent to see the patient on the floor, examine the patient, review data and lab results, discuss treatment plan with patient, nursing staff around 35 minutes.
Physical Exam
General: No acute distress
HEENT: Normocephalic, Atraumatic, EOMI, MMM
Respiratory: Clear to Auscultation bilaterally
Cardiac: Normal S1/S2, Regular Rate and Rhythm
GI: Soft, Nontender, Nondistended, Normal Bowel Sounds
Extremities: No Clubbing, Cyanosis, or Edema
Neuro: Nonfocal/Grossly Intact
Psych: Calm, Cooperative
Derm: No Visible lesions
Anticipated Discharge: Within 24 hours
Subjective/Interval History
-
Date of Service: April 28, 2025
Patient reports overall his diarrhea is improving. Denies chest pain, denies shortness of breath. No fever, no vomiting.
Objective Data
-
Labs:
Laboratory Results
04/28/25
07:40
WBC 6.4
Hgb 11.4 L
Hct 33.7 L
Plt Count 109 L
Sodium 143
Potassium 3.4 L
Chloride 115 H
Carbon Dioxide 23
BUN 12
Creatinine 0.9
Glucose 91
Calcium 8.7
Vital Signs:
Vital Signs
Temp Pulse Resp BP Pulse Ox
97.8 F 61 20 113/68 96
04/28/25 07:00 04/28/25 09:13 04/28/25 07:00 04/28/25 09:13 04/28/25 07:00
I&O
04/27/25 04/28/25 04/29/25
06:59 06:59 06:59
Intake Total 1939 1560 / 1560
Balance 1939 1560 / 1560
[2025-04-28] MEDS: LR 1000 IV (10:38)
--- NOTE | 2025-04-28 14:14 | CM ---
CM following re: discharge planning.
Reviewed pt' chart, met with pt and pt's spouse at bedside.
Per chart review, colorectal surgery following.
Pt lives with spouse in a rancher style house, has no children and opt described himself as independent in all areas [employer], works and runs daily.
D/C plan: home with anticipated no needs. Spouse to transport at discharge.
CM will follow with discharge plan updates as needed.
[2025-04-28 15:00] VITALS: BP 125/65
--- NOTE | 2025-04-28 17:12 | W.PN.GI.CBS2 ---
Today's Communication / Plan
-
.
Assessment / Plan
-
Mr Zhu is a 75 y.o male with a past medical history of HTN, BPH and GERD who presented to the ED with abdominal pain and diarrhea and abnormal CT imaging concerning for any adynamic ileus. GI has been consulted for further evaluation and
management. Hx prior similar symptoms in past. Pt also admits to recent issues with diarhea and K. He is scheduled EGD/colon in May with Dr. Pabon. + wt loss
I met the pt today. He denies abdominal pain, vomiting. Tolerated 1/2 sandwich for dinner last night. Abdomen was soft and non-tender on exam. Persistent hypokalemia with K of 2.8 today. He complained of multiple watery BMs and flatus.
Discussed stopping miralax. He had just returned from abdo xray at that point. Given his benign exam and absence of symptoms, I told him his ileus has likely resolved/improving and will continue with supportive mx. He seemed unsatisfied. After I
had left the room, he called me back and told me he doesn't want to see me anymore.
Later in am, abdo xray reading was available, cecum now measuring up to 14 cm. Although his exam is benign and w/o symptoms, given its measured size, I'd recommend colorectal surgery evaluation. Will follow peripherally.
S/p flx sigmoidoscopy on 04/26, showed mild inflammatory changes in cecum/ascending colon, bx taken. Decompressed.
Tolerating solid diet, diarrhea/loose BM slowing down. Anticipate d/c home tomorrow. Path still pending.
Total Time Spent with Patient (in minutes): 35
Subjective
Subjective
Date of Service: April 28, 2025
diarrhea slowing down
Objective
Data Reviewed
Laboratory Data:
Laboratory Results
04/28/25 07:40
04/28/25 07:40
Laboratory Results
Magnesium 1.8 mg/dl (1.6-2.3) 04/28/25 07:40
Total Bilirubin 0.8 mg/dl (0.2-1.3) 04/22/25 15:46
AST 22 U/L (17-59) 04/22/25 15:46
ALT 20 U/L (0-50) 04/22/25 15:46
Alkaline Phosphatase 58 U/L (38-126) 04/22/25 15:46
Lipase 134 U/L (23-300) 04/22/25 15:46
Vital Signs and I&O:
Vital Signs
Temp Pulse Resp BP Pulse Ox
97.9 F 61 20 125/65 98
04/28/25 15:00 04/28/25 15:00 04/28/25 15:00 04/28/25 15:00 04/28/25 15:00
I&O
04/27/25 04/28/25 04/29/25
06:59 06:59 06:59
Intake Total 1939 156 / 1560
Balance 1939 1560 / 1560
[2025-04-28] MEDS: PROTONIX 40 MG PO (21:03)
[2025-04-28] MEDS: LIPITOR 40 MG PO (21:03)
[2025-04-28] MEDS: PROSCAR 5 MG PO (21:03)
[2025-04-28] MEDS: FLOMAX 0.4 MG PO (21:03)
[2025-04-28] MEDS: AMBIEN 5 MG PO (22:57)
[2025-04-28 23:00] VITALS: BP 124/73
[2025-04-29 05:42] LABS: Hematocrit 30.9 % (39.0-52.0); Hemoglobin 10.9 g/dL (13.0-18.0); Mean Corp Hgb Conc. 35.3 g/dL (33.0-37.0); Mean Corpuscular Volume 88.5 fL (80.0-94.0); Platelet Count 111 10^3/uL (130-400); Red Cell Dist. Width 12.9 % (11.5-14.5)
[2025-04-29 06:05] LABS: Blood Urea Nitrogen 11 mg/dl (9-20); Calcium 8.8 mg/dl (8.4-10.2); Carbon Dioxide 24 mmol/L (22-30); Chloride 116 mmol/L (98-107); Estimated Creatinine Clearance 78 ml/min; Glucose 99 mg/dl (70-99); Potassium 3.4 mmol/L (3.5-5.1); Sodium 140 mmol/L (135-145); eGFR > 60.00
[2025-04-29 07:00] VITALS: BP 135/76
--- NOTE | 2025-04-29 08:46 | W.PN.HOSP.TC ---
Today's Communication/Plan
-
Cleared by GI for discharge on colestipol twice a day as needed for diarrhea
Assessment / Plan
Assessment / Plan
HPI: 75y M with PMH significant for hypertension, BPH and GERD who presents to ED complaining of abdominal distention, diarrhea and weight loss since January. Patient reports prior h/o similar symptoms- always occurring in the fall and usually
lasting about 7-10 days. This year he developed similar symptoms and they have persisted. He reports about 10 episodes of watery, non-bloody diarrhea and large amounts of flatus per day. he feels improved for about an hour after each episode.
Mild crampy abdominal pain. No N/V. No fevers / chills.
He has andres evaluated by his PCP and GI (Dr Pabon) and is scheduled for colonoscopy in May. X-ray shows severe colonic dynamic ileus with diffuse air distention of the colon, similar to CT scan from 04/20
Recent abdominal imaging was done which showed marked colonic distention / 'ileus' and patient was advised to present to the ED
C. difficile negative
CT abdomen/pelvis done on 04/20/2025.
1. SEVERE AIR DISTENTION of the COLON most consistent with a SEVERE COLONIC ADYNAMIC ILEUS.
2. Mild splenomegaly with innumerable small subcentimeter low-attenuation lesions in the spleen. Diagnostic possibilities are (1) benign splenic lesions (granulomas, hemangiomas, or other benign splenic tumors) or (2) less likely malignancy
(lymphoma).
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
4. Mild intrahepatic biliary dilatation.
5. Cholelithiasis.
6. VERY SEVERE ENLARGEMENT of the PROSTATE GLAND.
7. 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
Imaging (Chest/Abd X-ray) on 04/22/2025.
Severe colonic adynamic ileus with diffuse air distention of the colon, similar to prior imaging (04/20/2025)
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
No radiographic evidence of small bowel obstruction or pneumoperitoneum
Stool studies: Negative C. difficile, pending other infectious stool studies.
Zane syndrome
Severe colonic adynamic ileus
Large Cecum Diameter
- 14 cm
- Status post colonic decompression by Dr. Castro on 04/26/25 (status post flex sigmoidoscopy on 04/26, showed mild inflammatory changes in cecum/ascending colon, bx taken. Decompressed)
- GI states that patient's diarrhea may take weeks to resolve
- He is tolerating his diet, and has been instructed to increase his fluid and electrolyte intake commensurate with the amount of diarrhea he is having
- Cleared by GI for discharge on colestipol twice a day as needed for diarrhea
- Follow-up with his PCP in 1 week, he needs a repeat BMP with his PCP at that time
- Follow-up with his usual GI doctor on 05/27/2025 for EGD and colonoscopy
Acute kidney injury.
Secondary to prerenal azotemia.
Creatinine: 1.3 improved to 1.0 to 0.8
Resolved with IV fluids
Hypokalemia
Continue aggressive repletion, magnesium normal
Hyponatremia.
Resolved
Hypertension
recently, lisinopril and spironolactone were both resumed
Hyperlipidemia
Continue atorvastatin
GERD
Continue esomeprazole (Nexium)
BPH
Continue finasteride and tamsulosin.
DVT prophylaxis: SCDs. Patient is ambulatory/active therefore does not need subq Heparin. Fam Score is 1.
Diet: Low Residue Diet
Family communication: Discussed with at bedside
Physical Exam
General: No acute distress
HEENT: Normocephalic, Atraumatic, EOMI, MMM
Respiratory: Clear to Auscultation bilaterally
Cardiac: Normal S1/S2, Regular Rate and Rhythm
GI: Soft, Nontender, Nondistended, Normal Bowel Sounds
Extremities: No Clubbing, Cyanosis, or Edema
Neuro: Nonfocal/Grossly Intact
Psych: Calm, Cooperative
Derm: No Visible lesions
Anticipated Discharge: Today
Subjective/Interval History
-
Date of Service: April 29, 2025
Patient reports having 7 episodes of diarrhea since midnight. Denies abdominal pain, no nausea, no vomiting. No chest pain, no shortness of breath. No fever.
Objective Data
-
Labs:
Laboratory Results
04/29/25
05:17
WBC 5.8
Hgb 10.9 L
Hct 30.9 L
Plt Count 111 L
Sodium 140
Potassium 3.4 L
Chloride 116 H
Carbon Dioxide 24
BUN 11
Creatinine 0.8
Glucose 99
Calcium 8.8
Vital Signs:
Vital Signs
Temp Pulse Resp BP Pulse Ox
98.1 F 65 16 124/73 98
04/28/25 23:00 04/28/25 23:00 04/28/25 23:00 04/28/25 23:00 04/28/25 23:00
I&O
04/28/25 04/29/25 04/30/25
06:59 06:59 06:59
Intake Total 1560 / 1560 5 / 2625
Balance 1560 / 1560 5 / 2625
--- NOTE | 2025-04-29 09:50 | W.PN.GI.CBS2 ---
Today's Communication / Plan
-
Ok from GI for hosp d/c today
Dr Castro will call him with results of bx
Close OP FU with Dr Pabon his GI at [facility] in 05/27/25
Will sign off please call for ?
Assessment / Plan
-
Mr Zhu is a 75 y.o male with a past medical history of HTN, BPH and GERD who presented to the ED with abdominal pain and diarrhea and abnormal CT imaging concerning for any adynamic ileus. GI has been consulted for further evaluation and
management. Hx prior similar symptoms in past. Pt also admits to recent issues with diarhea and K. He is scheduled EGD/colon in May with Dr. Pabon. + wt loss
I met the pt today. He denies abdominal pain, vomiting. Tolerated 1/2 sandwich for dinner last night. Abdomen was soft and non-tender on exam. Persistent hypokalemia with K of 2.8 today. He complained of multiple watery BMs and flatus.
Discussed stopping miralax. He had just returned from abdo xray at that point. Given his benign exam and absence of symptoms, I told him his ileus has likely resolved/improving and will continue with supportive mx. He seemed unsatisfied. After I
had left the room, he called me back and told me he doesn't want to see me anymore.
Impression
- Olgovie's
- Diarrhea
- HTN
- BPH
- GERD
- Wt loss
Recommendations
- Await results from biopsies
- Monitor stool output
- Stop immodium, ok to use colestipol 1mg BID PRN basis
- Low residue diet
- He has OP FU with Dr Pabon 05/27/25
Ok from GI perspective for hosp d/c. Please call for ?
Above d/w hospitalist
Subjective
Subjective
Date of Service: April 29, 2025
He is eating 90-100% of low residue diet. No abd pain nausea or vomiting. Still 6 episodes of small looser stools denies blood.
Objective
Data Reviewed
Laboratory Data:
Laboratory Results
04/29/25 05:17
04/29/25 05:17
Laboratory Results
Magnesium 1.8 mg/dl (1.6-2.3) 04/28/25 07:40
Total Bilirubin 0.8 mg/dl (0.2-1.3) 04/22/25 15:46
AST 22 U/L (17-59) 04/22/25 15:46
ALT 20 U/L (0-50) 04/22/25 15:46
Alkaline Phosphatase 58 U/L (38-126) 04/22/25 15:46
Lipase 134 U/L (23-300) 04/22/25 15:46
Vital Signs and I&O:
Vital Signs
Temp Pulse Resp BP Pulse Ox
97.9 F 60 20 135/76 97
04/29/25 07:00 04/29/25 07:00 04/29/25 07:00 04/29/25 07:00 04/29/25 07:00
I&O
04/28/25 04/29/25 04/30/25
06:59 06:59 06:59
Intake Total 1560 / 1560 2625 / 2625
Balance 1560 / 1560 2625 / 2625
Physical Exam
Physical Exam
GEN: No acute distress, conversant, pleasant
HEENT: anicteric, extraocular movements intact, clear oropharynx without exudates
GI: soft, non-distended, not tender to palpation, normal active bowel sounds, no hepatosplenomegaly
EXT: warm, well perfused, trace edema bilaterally
NEURO: AAOx3, non-focal
[2025-04-29] MEDS: ZESTRIL 10 MG PO (09:54)
[2025-04-29] MEDS: KCL 40 MEQ PO (09:54)
[2025-04-29] MEDS: VISBIOME 1 CAP PO (09:55)
[2025-04-29] MEDS: ALDACTONE 25 MG PO (09:59)
--- NOTE | 2025-04-29 10:29 | W.DCSUMMARY ---
Discharge Summary
Discharge Data
Date of Admission: 04/22/25
Date of Discharge: 04/29/25
-
Pending Results: No
Hospital Course
Discharge diagnosis:
Zane syndrome
Severe colonic adynamic ileus
Diarrhea
Acute kidney injury
Hypokalemia
Hyponatremia
Essential hypertension
Gastroesophageal reflux disease
Consults: GI, colorectal surgery
Procedures:
04/26/2025 flexible sigmoidoscopy with decompression, showing mild inflammatory changes in the cecum/ascending colon, biopsies taken, with Dr. Castro
CT abd/pelvis:
1. SEVERE AIR DISTENTION of the COLON most consistent with a SEVERE COLONIC ADYNAMIC ILEUS.
2. Mild splenomegaly with innumerable small subcentimeter low-attenuation lesions in the spleen. Diagnostic possibilities are (1) benign splenic lesions (granulomas, hemangiomas, or other benign splenic tumors) or (2) less likely malignancy
(lymphoma).
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
4. Mild intrahepatic biliary dilatation.
5. Cholelithiasis.
6. VERY SEVERE ENLARGEMENT of the PROSTATE GLAND.
7. 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
Hospital course:
75-year-old male with a past medical history of GERD, hypertension, and BPH presented with intractable diarrhea, and was found to have severe colonic adynamic ileus and Snook syndrome. Patient was seen in conjunction with GI and colorectal
surgery. He underwent flexible sigmoidoscopy with decompression on 04/26/2025.
Patient tolerated his regular diet. However his diarrhea persisted. He was profoundly hypokalemic. His potassium was repleted aggressively, and improved. He did not have any nausea or vomiting. GI states that his diarrhea may take weeks to
improve. Reassurance and counseling were provided to the patient. The patient was agreeable for discharge.
He is medically stable and cleared by GI for discharge on colestipol 1 g twice daily as needed for diarrhea. He needs to follow-up with his usual GI doctor on 05/27/2025, he has an endoscopy and colonoscopy scheduled then. He will be discharged on
potassium chloride 40 mEq twice a day. He has been instructed to increase his fluid intake such as Pedialyte, commensurate with his diarrhea. He needs to follow-up with his PCP in 1 week, and have a BMP checked with his PCP at that time.
Disposition: Home self-care
Discharge planning: Required 41 minutes
Discharge Plan
-
Patient Disposition: Home (Routine Discharge)
Discharge Diagnosis/Procedures: Zane syndrome status post colonic decompression, hypokalemia
Condition: Good
Diet: Low Fiber
Activity: As tolerated
Driving Restrictions: As prior to admission
Blood Work: BMP with PCP in 1 week
Activity Restrictions/Additional Instructions:
Please follow-up with your usual GI doctor on 05/27/2025.
Please increase your liquid intake with Pedialyte or water mixed with liquid IV if you are having more diarrhea.
Follow-up with your family doctor in 1 week, you will need to get repeat blood work with your family doctor to check your potassium level.
Instructions: Low-fiber diet
Referrals:
Cesar Pabon MD [Non-Admitting Privileges, Internal Medicine]
Referral Note: follow up for EGD/colon -discuss OP MRI with mild biliary dilation on CT during admission
Jono Manuel MD [Family Provider, Internal Medicine] - in one week
Prescriptions:
New
potassium chloride [Klor-Con M20] 20 mEq Tablet,Er Particles/Crystals
40 meq PO BID 14 Days Qty: 56 0RF
colestipol 1 gram tablet
1 g PO BID PRN (Reason: diarrhea) 30 Days Qty: 60 0RF
Continued
esomeprazole magnesium [Nexium] 40 MG capsule,delayed release(DR/EC)
40 mg PO HS
ondansetron 4 mg tablet,disintegrating
4 mg PO Q8H PRN (Reason: nausea and vomiting) Qty: 10 0RF
atorvastatin 40 mg tablet
40 mg PO HS
spironolactone 25 mg tablet
25 mg PO SUTUTHSA
zmmbheowtg-cauxdviruxbkl-sgns 50-325-40 mg tablet
1 tab PO Q4H PRN (Reason: migraine )
tamsulosin 0.4 mg capsule
0.4 mg PO HS
flunisolide 25 mcg (0.025 %) spray,non-aerosol
1 spray INTRANASAL DAILY
lisinopril 10 mg Tablet
10 mg PO DAILY
simethicone 125 mg Tablet
125 mg PO QIDPRN PRN (Reason: gas pains )
zolpidem 10 mg tablet
10 mg PO HSPRN PRN (Reason: insomnia)
finasteride 5 mg tablet
5 mg PO HS
spironolactone 50 mg tablet
50 mg PO MOWEFR
diazepam 5 mg tablet
5 mg PO HSPRN PRN (Reason: insomnia)
Align (B.longum) 10 million cell Capsule
1 cell PO DAILY
Discontinued
potassium chloride [Klor-Con] 20 MEQ packet
20 meq PO DAILY
Discharge Orders:
Discharge Patient (As Directed); Ordered 04/29/25
Ordered By: Leoncio Shirley
Discharge Date and Time
Discharge Date/Time: 04/29/25 11:38
Print Language: SYRIAC
--- NOTE | 2025-04-29 10:36 | CM ---
CM following re: discharge planning.
Reviewed pt' chart, met with pt and pt's spouse at bedside.
Discharge order noted. Both pt and his spouse are aware, expressed their agreement with discharge.
IMM reviewed, placed on chart, pt has a copy.
Pt lives with spouse in a rancher style house, has no children and opt described himself as independent in all areas [employer], works and runs daily.
No after care VN needs identified.
D/C plan: home with anticipated no needs. Spouse to transport
[2025-04-29 11:01] VITALS: BP 126/77
== END 2025-04-29 11:38 | disposition home or self-care (01) | DRG 389 ==
LOC: 2 NORTH 22:00
PROVIDERS: General Practice; Hospitalist; Nurse Practitioner Family; ADMITTING PHYSICIAN Hospitalist; ATTENDING PHYSICIAN Family Medicine; CONSULT PHYSICIAN Surgery; EMERGENCY PHYSICIAN Emergency Medicine; FAMILY PHYSICIAN Internal Medicine; OTHER PHYSICIAN Student in an Organized Health Care Education/Training Program
DX: K56.0 Paralytic ileus (principal); E87.1 Hypo-osmolality and hyponatremia; N17.9 Acute kidney failure, unspecified; E87.6 Hypokalemia; I10 Essential (primary) hypertension; K21.9 Gastro-esophageal reflux disease without esophagitis; K59.81 Ogilvie syndrome; Z79.899 Other long term (current) drug therapy
CPT/HCPCS: 74018; 74022; 80048; 80053; 83690; 83735; 85025; 85027; 87045; 87046; 87324; 87427; 87449; 88305; 96360; 99284